=== PATIENT | female | born 1960 | race Caucasian/White ===

== ENCOUNTER 2017-06-21 15:34 | Inpatient (IN) | payer MEDICARE, OTHER ==
[~2017-06-21] VITALS: Ht 157.5 cm; Wt 76.4 kg
[~2017-06-21 15:34] MED LIST: AMLO5TAB2 PO; ASPI1TAB69 PO; ATOR80TA45 PO; CARV3.12 PO; CLOP75TA PO; DULO1CAP2 PO; FURO40TA PO; GABA300C5 PO; LISI-519 PO; METF500T PO; NYST10007 TOPICAL; PANT40TA3 PO; SYMB160A INH; TIOT12.9 INH
[2017-06-21 16:05] VITALS: BP 128/68; PULSE 71; RESP 20; TEMP 98.2; O2SAT 97
[2017-06-21] MEDS ORDERED: MORPHINE SULFATE 4 MG/ML INJ IV PUSH ONE (16:45)
[2017-06-21] MEDS ORDERED: SODIUM CHLORIDE 0.9% FLUSH 10 ML FLUSH IVF PRN (16:45)
[2017-06-21 17:00] VITALS: O2SAT 98
--- NOTE | 2017-06-21 17:01 | RADRPT ---
EXAM DATE/TIME: 06/21/2017 16:52 [facility] COMPARISON: CHEST PA & LAT, August 04, 2014, 8:41. INDICATIONS : Chest pain. MEDICAL HISTORY : Cardiovascular disease. Chronic obstructive pulmonary disease. SURGICAL HISTORY : CABG. Carotid stent. ENCOUNTER: Initial ACUITY: 1 day PAIN SCORE: 3/10 LOCATION: middle chest. FINDINGS: PA and lateral views of the chest demonstrate the lungs to be symmetrically aerated without evidence of mass, infiltrate or effusion. The cardiomediastinal contours are unremarkable. Osseous structure s are intact. CONCLUSION: Normal examination. Clips and wires suggest CABG. Brandon Ospina MD on June 21, 2017 at 16:56 Board Certified Radiologist. This report was verified electronically.
[2017-06-21 17:15] VITALS: BP 142/82; PULSE 73; RESP 18; O2SAT 93
--- NOTE | 2017-06-21 17:37 | RADRPT ---
EXAM DATE/TIME: 06/21/2017 17:15 [facility] COMPARISON: No previous studies available for comparison. INDICATIONS : Left arm pain. MEDICAL HISTORY : Cardiovascular disease. Myocardial infarction. Hypertension. Hypercholesterolemia. COPD. TIA. CHF. Renal Disease. SURGICAL HISTORY : Tubal ligation. AAA Repair. Mastectomy. ENCOUNTER: Initial ACUITY: 2 day PAIN SCORE: 2/10 LOCATION: Left arm. FINDINGS: There is spontaneous flow documented in the brachial, basilic, cephalic, axillary, and subclavian vei ns. The vessels are compressible and augmentation response is documented. No filling defects are se en. The flow is phasic with respiration. Direction of flow in the jugular vein is caudal. CONCLUSION: Normal examination. Brandon Ospina MD on June 21, 2017 at 17:35 Board Certified Radiologist. This report was verified electronically.
[2017-06-21 17:39] LABS: AUTOMATED NEUTROPHIL # 4.4 TH/MM3 (1.8-7.7); BASOPHIL # 0.1 TH/MM3 (0-0.2); BASOPHIL % 1.3 % (0.0-2.0); EOSINOPHIL # 0.3 TH/MM3 (0-0.4); HEMATOCRIT 39.4 % (35.0-46.0); HEMOGLOBIN 13.5 GM/DL (11.6-15.3); LYMPH % 25.9 % (9.0-44.0); LYMPHOCYTE # 1.9 TH/MM3 (1.0-4.8); MEAN CELL VOLUME 82.6 FL (80.0-100.0); MEAN CORPUSCULAR HEMOGLOBIN 28.2 PG (27.0-34.0); MEAN CORPUSCULAR HGB CONC 34.2 % (32.0-36.0); MEAN PLATELET VOLUME 9.1 FL (7.0-11.0); MONO % 6.9 % (0.0-8.0); MONOCYTE # 0.5 TH/MM3 (0-0.9); NEUT % 61.9 % (16.0-70.0); PLATELET COUNT 224 TH/MM3 (150-450); RED BLOOD COUNT 4.78 MIL/MM3 (4.00-5.30); RED CELL DISTRIBUTION WIDTH 16.3 % (11.6-17.2); WHITE BLOOD COUNT 7.2 TH/MM3 (4.0-11.0)
[2017-06-21 18:04] LABS: ALT (GPT) 17 U/L (10-53)
[2017-06-21 18:06] LABS: ALBUMIN 3.6 GM/DL (3.4-5.0); AST (GOT) 25 U/L (15-37); BICARBONATE 25.3 MEQ/L (21.0-32.0); BLOOD UREA NITROGEN 14 MG/DL (7-18); CALCIUM 8.8 MG/DL (8.5-10.1); CHLORIDE 104 MEQ/L (98-107); CREATININE 1.27 MG/DL (0.50-1.00); GLOMERULAR FILTRATION RATE 43 ML/MIN (>89); GLUCOSE,RANDOM 119 MG/DL (74-106); MAGNESIUM 2.2 MG/DL (1.5-2.5); SODIUM (NA) 138 MEQ/L (136-145)
--- NOTE | 2017-06-21 18:08 | PD ---
HPI Chief Complaint: Abdominal Pain Time Seen by Provider: 16:12 Travel History International Travel<30 days: No Contact w/Intl Traveler<30days: No Traveled to known affect area: No History of Present Illness HPI 57 YO F with PMH of CAD, PVD, CHF, TIA, HTN status post CABG, AAA repair on Plavix and aspirin daily presents to the ED for evaluation of 3/10 left-sided shoulder pain, radiating to the left chest and into the back. She denies palpitations, shortness of breath, nausea, vomiting, diaphoresis. Patient states this pain is similar to symptoms prior to previous heart attack. Also complains of 2/10 pain in the left antecubital space. Onset after she gave blood a few days ago. Patient states that she went to her primary care today to have these pains evaluated, was noted to have a potassium level of 5.0. PFSH Past Medical History Anemia: Yes Asthma: No Autoimmune Disease: No Blood Disorders: No Anxiety: No Depression: No Heart Rhythm Problems: No Cancer: No Cardiac Catheterization: Yes Cardiovascular Problems: Yes High Cholesterol: Yes Chest Pain: No Congestive Heart Failure: Yes COPD: Yes Cerebrovascular Accident: Yes (TIA'S) Diabetes: No Diminished Hearing: No Endocrine: No Genitourinary: Yes Hypertension: Yes Immune Disorder: No Musculoskeletal: No Neurologic: Yes (NEUROPATHY FROM ETOH ABUSE) Psychiatric: No Reproductive: No Respiratory: Yes Myocardial Infarction: Yes (2009) Radiation Therapy: No Sleep Apnea: No Thyroid Disease: No PNEUMOCCOCAL Vaccine (Year): 3 Tubal Ligation: Yes Past Surgical History Abdominal Surgery: Yes (AAA) AICD: No Cardiac Surgery: Yes (CABG X 4 2009, AAA, FEMP/POP BYPASS BILATERAL) Coronary Stent: Yes Ear Surgery: No Endocrine Surgery: No Eye Surgery: No Genitourinary Surgery: No Gynecologic Surgery: Yes (TUBAL LIGATION) Oral Surgery: No Pacemaker: No Thoracic Surgery: No Other Surgery: Yes (AAA/neuropathy, trip bypass) Social History Alcohol Use: No (QUIT 04/2014) Tobacco Use: No (QUIT 2007) Substance Use: Yes (MARIJUANA) Allergies-Medications (Allergen,Severity, Reaction): Coded Allergies: No Known Allergies (Verified Allergy, Unknown, 03/21/17) Reported Meds & Prescriptions Reported Meds & Active Scripts Active Carvedilol 3.125 Mg Tab 3.125 Mg PO BID Spiriva Respimat Inh (Tiotropium Inh) 2.5 Mcg/Act Aero 2 Puff INH DAILY 2.5 mcg = 1 inhalation Atorvastatin (Atorvastatin Calcium) 80 Mg Tab 80 Mg PO HS Lisinopril 5 Mg Tab 5 Mg PO DAILY Metformin (Metformin HCl) 500 Mg Tab 1,000 Mg PO BIDPC With meals Symbicort Inh (Budesonide/Formoterol Fumarate) 160-4.5 Mcg/Act Aero 2 Puff INH Q12HR Clopidogrel (Clopidogrel Bisulfate) 75 Mg Tab 75 Mg PO DAILY Nystop Topical (Nystatin Topical) 100,000 Unit/Gm Powd 1 Applic TOPICAL Q12HR Amlodipine (Amlodipine Besylate) 5 Mg Tab 5 Mg PO DAILY Furosemide 40 Mg Tab 40 Mg PO DAILY Pantoprazole (Pantoprazole Sodium) 40 Mg Tab 40 Mg PO DAILY Reported Gabapentin 300 Mg Cap 300 Mg PO BID Duloxetine DR (Duloxetine HCl) 30 Mg Capdr 30 Mg PO BID Review of Systems Except as stated in HPI: all other systems reviewed are Neg Physical Exam Narrative GENERAL: Well-nourished, well-developed white female no acute distress. SKIN: Focused skin assessment warm/dry. HEAD: Normocephalic. EYES: No scleral icterus. No injection or drainage. NECK: Supple, trachea midline. No JVD or lymphadenopathy. CARDIOVASCULAR: Regular rate and rhythm without murmurs, gallops, or rubs. CHEST: Nontender throughout without deformity or crepitus. No retractions or use of accessory muscles. RESPIRATORY: Breath sounds equal bilaterally. GASTROINTESTINAL: Abdomen soft, non-tender, nondistended. MUSCULOSKELETAL: No cyanosis, or edema. BACK: Nontender without obvious deformity. No CVA tenderness. Data Data Last Documented VS Vital Signs Date Time Temp Pulse Resp B/P (MAP) Pulse Ox O2 Delivery O2 Flow Rate FiO2 06/21/17 18:58 78 18 139/83 (101) 96 Room Air 06/21/17 16:05 98.2 Orders Orders Electrocardiogram (06/21/17 16:39) Ckmb (Isoenzyme) Profile (06/21/17 16:39) Complete Blood Count With Diff (06/21/17 16:39) Comprehensive Metabolic Panel (06/21/17 16:39) Magnesium (Mg) (06/21/17 16:39) Prothrombin Time / Inr (Pt) (06/21/17 16:39) Act Partial Throm Time (Ptt) (06/21/17 16:39) Troponin I (06/21/17 16:39) Ecg Monitoring (06/21/17 16:39) Bilateral Bp Monitoring (06/21/17 16:39) Iv Access Insert/Monitor (06/21/17 16:39) Oximetry (06/21/17 16:39) Sodium Chloride 0.9% Flush (Ns Flush) (06/21/17 16:45) Chest, Pa & Lat (06/21/17 16:39) Morphine Inj (Morphine Inj) (06/21/17 16:45) Us Arm Venous Doppler (06/21/17 16:39) B-Type Natriuretic Peptide (06/21/17 18:08) CKMB (06/21/17 16:12) CKMB% (06/21/17 16:12) Nitroglycerin 2% Oint (Nitroglycerin 2% (06/21/17 18:45) Aspirin Chew (Aspirin Chew) (06/21/17 18:45) Npo After Midnight W/ Po Meds (06/21/17 Dinner) Consult Cardiology (06/21/17 ) Nitroglycerin 2% Oint (Nitroglycerin 2% (06/21/17 19:00) Enoxaparin Inj (Lovenox Inj) (06/21/17 19:00) Troponin I (06/21/17 18:58) Creatine Kinase (Cpk) (06/21/17 18:58) Admit Order (Ed Use Only) (06/21/17 19:10) Labs Laboratory Tests Test 06/21/17 16:12 White Blood Count 7.2 TH/MM3 Red Blood Count 4.78 MIL/MM3 Hemoglobin 13.5 GM/DL Hematocrit 39.4 % Mean Corpuscular Volume 82.6 FL Mean Corpuscular Hemoglobin 28.2 PG Mean Corpuscular Hemoglobin Concent 34.2 % Red Cell Distribution Width 16.3 % Platelet Count 224 TH/MM3 Mean Platelet Volume 9.1 FL Neutrophils (%) (Auto) 61.9 % Lymphocytes (%) (Auto) 25.9 % Monocytes (%) (Auto) 6.9 % Eosinophils (%) (Auto) 4.0 % Basophils (%) (Auto) 1.3 % Neutrophils # (Auto) 4.4 TH/MM3 Lymphocytes # (Auto) 1.9 TH/MM3 Monocytes # (Auto) 0.5 TH/MM3 Eosinophils # (Auto) 0.3 TH/MM3 Basophils # (Auto) 0.1 TH/MM3 CBC Comment DIFF FINAL Differential Comment Prothrombin Time 10.0 SEC Prothromb Time International Ratio 1.0 RATIO Activated Partial Thromboplast Time 25.4 SEC Blood Urea Nitrogen 14 MG/DL Creatinine 1.27 MG/DL Random Glucose 119 MG/DL Total Protein 7.5 GM/DL Albumin 3.6 GM/DL Calcium Level 8.8 MG/DL Magnesium Level 2.2 MG/DL Alkaline Phosphatase 86 U/L Aspartate Amino Transf (AST/SGOT) 25 U/L Alanine Aminotransferase (ALT/SGPT) 17 U/L Total Bilirubin 0.5 MG/DL Sodium Level 138 MEQ/L Potassium Level 5.2 MEQ/L Chloride Level 104 MEQ/L Carbon Dioxide Level 25.3 MEQ/L Anion Gap 9 MEQ/L Estimat Glomerular Filtration Rate 43 ML/MIN Total Creatine Kinase 157 U/L Creatine Kinase MB 1.8 NG/ML Troponin I 0.07 NG/ML B-Type Natriuretic Peptide 249 PG/ML MDM Medical Decision Making Medical Screen Exam Complete: Yes Emergency Medical Condition: Yes Differential Diagnosis Muscular skeletal pain versus chest pain versus ACS versus metabolic derangement versus other Narrative Course 57 YO F with PMH of CAD, PVD, CHF, TIA, HTN status post CABG, AAA repair on Plavix and aspirin daily presents to the ED for evaluation of 3/10 left-sided shoulder pain, radiating to the left chest and into the back. She denies palpitations, shortness of breath, nausea, vomiting, diaphoresis. Patient states this pain is similar to symptoms prior to previous heart attack. Also complains of 2/10 pain in the left antecubital space. Onset after she gave blood a few days ago. Noted to have a potassium level of 5.0 at PCP office visit today. Followed by Dr. Zambrano, cardiology. Patient is afebrile, pulse 71, BP 120/68 on presentation. Physical exam is unremarkable. Patient was administered 4 mg morphine, 162 mg aspirin. EKG rate 96, sinus rhythm, frequent PVCs. OH interval 163, QRS 117, QTc 479 ms. Normal axis. No acute ST changes. Q waves in [address] Review[address] by Dr[address] Bowen. CXR: Normal exam. Clips and wires suggest CABG. Left upper extremity ultrasound: Normal exam per radiology read. Troponin 0.0 7. BNP 249. CBC is unremarkable. CMP potassium 5.2. BUN 14. Creatinine 1.27. 1 inch of Nitropaste was placed on the patient's chest. I spoke with Dr. Zambrano. He recommends an additional inch of Nitropaste, dose of subcutaneous Lovenox, admission to the hospital. Discussed the results of the workup and cardiology recommendations with the patient. She is agreeable to admission. I spoke with Dr. Berrios who agrees to accept the patient in the medicine service. Please see medicine and cardiology notes for disposition. Florinda Reeves Jun 21, 2017 18:08
[2017-06-21 18:11] LABS: ALKALINE PHOSPHATASE 86 U/L (45-117); TOTAL BILIRUBIN ADULT 0.5 MG/DL (0.2-1.0); TOTAL PROTEIN 7.5 GM/DL (6.4-8.2); TROPONIN I 0.07 NG/ML (0.02-0.05)
[2017-06-21] MEDS ORDERED: ASPIRIN 81 MG CHEW TAB CHEW ONE (18:45)
[2017-06-21] MEDS ORDERED: NITROGLYCERIN 2% OINT 1 GM PACKET TOP ONE ×2 (18:45→19:00)
[2017-06-21 18:58] VITALS: BP 139/83; PULSE 78; RESP 18; O2SAT 96
[2017-06-21] MEDS ORDERED: ENOXAPARIN SODIUM 80 MG/0.8 ML SYRINGE SQ ONE (19:00)
[2017-06-21] MEDS ORDERED: ACETAMINOPHEN 325 MG TAB PO PRN (19:45)
[2017-06-21] MEDS ORDERED: BISACODYL 10 MG SUPP RECTAL PRN (19:45)
[2017-06-21] MEDS ORDERED: SODIUM CHLORIDE 0.9% FLUSH 10 ML FLUSH IV FLUSH PRN (19:45)
[2017-06-21] MEDS ORDERED: LACTULOSE SYRUP 20 GM/30 ML CUP PO PRN (19:45)
[2017-06-21] MEDS ORDERED: SENNOSIDES 8.6 MG TAB PO PRN (19:45)
[2017-06-21] MEDS ORDERED: MAGNESIUM HYDROXIDE SUSP 30 ML CUP PO PRN (19:45)
[2017-06-21] MEDS ORDERED: NALOXONE HCL 0.4 MG/ML AMP IV PUSH PRN (19:45)
[2017-06-21 20:12] LABS: TROPONIN I 0.06 NG/ML (0.02-0.05)
[2017-06-21 20:13] VITALS: BP 149/69; PULSE 74; RESP 18; TEMP 96.2; O2SAT 96
[2017-06-21] MEDS ORDERED: GLUCAGON 1 MG/ML VIAL OTHER PRN (21:00)
[2017-06-21] MEDS ORDERED: DEXTROSE 50% IN WATER 50 ML VIAL(D50) IV PUSH PRN (21:00)
[2017-06-21] MEDS: INSULIN ASPART SUPPLEMENTAL SCALE SQ SCH (21:00)
--- NOTE | 2017-06-21 21:08 | HHI.HP ---
HPI Service [facility] Primary Care Physician ENDER Andres Admission Diagnosis Elevated troponin, hyperkalemia Diagnoses: Travel History International Travel<30 Days: No Contact w/Intl Traveler <30 Da: No Traveled to Known Affected Are: No History of Present Illness 57-year-old female with past medical history significant for COPD, CHF (EF of 25 -30% on 09/30/14), CKD, diabetes mellitus, hypertension and hyperlipidemia presents to the emergency department for evaluation of chest pain/pressure. The patient reports her chest pain started yesterday and radiates to her neck and down her left arm. She reports that her PCP sent her into the emergency department for further evaluation of this chest pain and hyperkalemia on outpatient labs. Her comptroller is Dr. Zambrano. She denies any shortness of breath worse than baseline. No diaphoretic episodes. No fever/chills. No nausea/vomiting/diarrhea/abdominal pain. No weakness or fatigue. No lateralizing signs/symptoms. Review of Systems Except as stated in HPI: all other systems reviewed are Neg Past Family Social History Past Medical History COPD CHF CKD Diabetes mellitus Hypertension Hyperlipidemia Past Surgical History CABG 3 AAA repair 2 Left CCA BTL Reported Medications Reported Meds & Active Scripts Active Carvedilol 3.125 Mg Tab 3.125 Mg PO BID Spiriva Respimat Inh (Tiotropium Inh) 2.5 Mcg/Act Aero 2 Puff INH DAILY 2.5 mcg = 1 inhalation Atorvastatin (Atorvastatin Calcium) 80 Mg Tab 80 Mg PO HS Lisinopril 5 Mg Tab 5 Mg PO DAILY Metformin (Metformin HCl) 500 Mg Tab 1,000 Mg PO BIDPC With meals Symbicort Inh (Budesonide/Formoterol Fumarate) 160-4.5 Mcg/Act Aero 2 Puff INH Q12HR Clopidogrel (Clopidogrel Bisulfate) 75 Mg Tab 75 Mg PO DAILY Nystop Topical (Nystatin Topical) 100,000 Unit/Gm Powd 1 Applic TOPICAL Q12HR Amlodipine (Amlodipine Besylate) 5 Mg Tab 5 Mg PO DAILY Furosemide 40 Mg Tab 40 Mg PO DAILY Pantoprazole (Pantoprazole Sodium) 40 Mg Tab 40 Mg PO DAILY Reported Gabapentin 300 Mg Cap 300 Mg PO BID Duloxetine DR (Duloxetine HCl) 30 Mg Capdr 30 Mg PO BID Allergies: Coded Allergies: No Known Allergies (Verified Allergy, Unknown, 03/21/17) Family History Father with CAD Social History Smokes approximately 2 packs per day. Occasional alcohol. Positive marijuana. Denies all other illicit drugs. Physical Exam Vital Signs Vital Signs Date Time Temp Pulse Resp B/P (MAP) Pulse Ox O2 Delivery O2 Flow Rate FiO2 06/21/17 20:06 06/21/17 18:58 78 18 139/83 (101) 96 Room Air 06/21/17 17:15 73 18 142/82 (102) 93 Room Air 06/21/17 17:00 98 Room Air 06/21/17 17:00 20 06/21/17 16:05 98.2 71 20 128/68 (88) 97 Physical Exam GENERAL: female sitting up in bed SKIN: No rashes, ecchymoses or lesions. Cool and dry. HEAD: Atraumatic. Normocephalic. No temporal or scalp tenderness. EYES: Pupils equal round and reactive. Extraocular motions intact. No scleral icterus. No injection or drainage. ENT: Nose without bleeding, purulent drainage or septal hematoma. Throat without erythema, tonsillar hypertrophy or exudate. Uvula midline. Airway patent. NECK: Trachea midline. No JVD or lymphadenopathy. Supple, nontender, no meningeal signs. CARDIOVASCULAR: Regular rate and rhythm without murmurs, gallops, or rubs. RESPIRATORY: Clear to auscultation. Breath sounds equal bilaterally. No wheezes , rales, or rhonchi. GASTROINTESTINAL: Abdomen soft, non-tender, nondistended. No hepato-splenomegaly , or palpable masses. No guarding. MUSCULOSKELETAL: Extremities without clubbing, cyanosis, or edema. No joint tenderness, effusion, or edema noted. No calf tenderness. NEUROLOGICAL: Awake and alert. Cranial nerves II through XII intact. Motor and sensory grossly within normal limits. Normal speech. Laboratory Laboratory Tests Test 06/21/17 16:12 06/21/17 19:25 White Blood Count 7.2 Red Blood Count 4.78 Hemoglobin 13.5 Hematocrit 39.4 Mean Corpuscular Volume 82.6 Mean Corpuscular Hemoglobin 28.2 Mean Corpuscular Hemoglobin Concent 34.2 Red Cell Distribution Width 16.3 Platelet Count 224 Mean Platelet Volume 9.1 Neutrophils (%) (Auto) 61.9 Lymphocytes (%) (Auto) 25.9 Monocytes (%) (Auto) 6.9 Eosinophils (%) (Auto) 4.0 Basophils (%) (Auto) 1.3 Neutrophils # (Auto) 4.4 Lymphocytes # (Auto) 1.9 Monocytes # (Auto) 0.5 Eosinophils # (Auto) 0.3 Basophils # (Auto) 0.1 CBC Comment DIFF FINAL Differential Comment Prothrombin Time 10.0 Prothromb Time International Ratio 1.0 Activated Partial Thromboplast Time 25.4 Blood Urea Nitrogen 14 Creatinine 1.27 Random Glucose 119 Total Protein 7.5 Albumin 3.6 Calcium Level 8.8 Magnesium Level 2.2 Alkaline Phosphatase 86 Aspartate Amino Transf (AST/SGOT) 25 Alanine Aminotransferase (ALT/SGPT) 17 Total Bilirubin 0.5 Sodium Level 138 Potassium Level 5.2 Chloride Level 104 Carbon Dioxide Level 25.3 Anion Gap 9 Estimat Glomerular Filtration Rate 43 Total Creatine Kinase 157 130 Creatine Kinase MB 1.8 Troponin I 0.07 0.06 Result Diagram: 06/21/17 1612 06/21/17 1612 Caprini VTE Risk Assessment Caprini VTE Risk Assessment: No/Low Risk (score <= 1) Caprini Risk Assessment Model Point Value = 1 Point Value = 2 Point Value = 3 Point Value = 5 Age 41-60 Minor surgery BMI > 25 kg/m2 Swollen legs Varicose veins or History of unexplained or recurrent spontaneous Oral contraceptives or hormone replacement Sepsis (< 1 month) Serious lung disease, including pneumonia (< 1 month) Abnormal pulmonary function Acute myocardial infarction Congestive heart failure (< 1 month) History of inflammatory bowel disease Medical patient at bed rest Age 61-74 Arthroscopic surgery Major open surgery (> 45 min) Laparoscopic surgery (> 45 min) Malignancy Confined to bed (> 72 hours) Immobilizing plaster cast Central venous access Age >= 75 History of VTE Family history of VTE Factor V Leiden Prothrombin [id number] Lupus anticoagulant Anticardiolipin antibodies Elevated serum homocysteine Heparin-induced thrombocytopenia Other congenital or acquired thrombophilia Stroke (< 1 month) Elective arthroplasty Hip, pelvis, or leg fracture Acute spinal cord injury (< 1 month) Prophylaxis Regimen Total Risk Factor Score Risk Level Prophylaxis Regimen 0-1 Low Early ambulation 2 Moderate Order ONE of the following: *Sequential Compression Device (SCD) *Heparin 5000 units SQ BID 3-4 Higher Order ONE of the following medications: *Heparin 5000 units SQ TID *Enoxaparin/Lovenox 40 mg SQ daily (WT < 150 kg, CrCl > 30 mL/min) *Enoxaparin/Lovenox 30 mg SQ daily (WT < 150 kg, CrCl > 10-29 mL/min) *Enoxaparin/Lovenox 30 mg SQ BID (WT < 150 kg, CrCl > 30 mL/min) AND/OR *Sequential Compression Device (SCD) 5 or more Highest Order ONE of the following medications: *Heparin 5000 units SQ TID (Preferred with Epidurals) *Enoxaparin/Lovenox 40 mg SQ daily (WT < 150 kg, CrCl > 30 mL/min) *Enoxaparin/Lovenox 30 mg SQ daily (WT < 150 kg, CrCl > 10-29 mL/min) *Enoxaparin/Lovenox 30 mg SQ BID (WT < 150 kg, CrCl > 30 mL/min) AND *Sequential Compression Device (SCD) Assessment and Plan Assessment and Plan Assessment/plan: 1. NSTEMI/CAD EKG shows normal sinus rhythm without ST segment elevation/depression, personally reviewed Initial troponin 0 0.07 Status post Lovenox Cardiology consulted, appreciate recommendations Aspirin N.p.o. Nitro 2. Diabetes mellitus Holding home metformin Sliding-scale insulin Monitor blood glucose 3. CHF Continue home Lasix, carvedilol 4. Hypertension/hyperlipidemia Continue home medications 5. Chronic kidney disease Creatinine 1.27, baseline Monitor renal function 6. COPD Continue Spiriva/Symbicort DuoNeb's Supplemental oxygen as needed FEN N.p.o. Electrolytes: Monitor and replete as needed, potassium 5.2 with slight hemolysis noted. Monitor Lovenox Physician Certification 2 Midnight Certification Type: Admission for Inpatient Services Order for Inpatient Services The services are ordered in accordance with Medicare regulations or non- Medicare payer requirements, as applicable. In the case of services not specified as inpatient-only, they are appropriately provided as inpatient services in accordance with the 2-midnight benchmark. Estimated LOS (days): 2 2 days is the estimated time the patient will need to remain in the hospital, assuming treatment plan goals are met and no additional complications. Post-Hospital Plan: Not yet determined Mei Berrios MD Jun 21, 2017 21:08
[2017-06-21] MEDS ORDERED: RESP: ALBUTEROL 2.5 MG/IPRATROPIUM 0.5 MG NEB (PRN) NEB (21:15)
[2017-06-21] MEDS: SODIUM CHLORIDE 0.9% FLUSH 10 ML FLUSH IV FLUSH SCH (22:20)
[2017-06-21] MEDS ORDERED: ACETAMINOPHEN/HYDROcodone 325 MG/5 MG TAB PO ONE (22:30)
[2017-06-22] VITALS (7 sets, daily range): BP systolic 110–146; BP diastolic 54–95; PULSE 59–117; RESP 16–18; TEMP 97.3–98.2; O2SAT 92–96
[2017-06-22] MEDS: NITROGLYCERIN 2% OINT 1 GM PACKET TOP SCH ×4 (01:35→17:31)
[2017-06-22 03:30] LABS: TROPONIN I 0.07 NG/ML (0.02-0.05)
[2017-06-22] MEDS: ONDANSETRON HCL 4 MG/2 ML VIAL IVP PRN (06:50)
[2017-06-22 07:12] LABS: AUTOMATED NEUTROPHIL # 3.1 TH/MM3 (1.8-7.7); BASOPHIL # 0.1 TH/MM3 (0-0.2); BASOPHIL % 1.2 % (0.0-2.0); EOSINOPHIL # 0.2 TH/MM3 (0-0.4); EOSINOPHIL % 4.4 % (0.0-4.0); HEMOGLOBIN 13.4 GM/DL (11.6-15.3); LYMPH % 29.2 % (9.0-44.0); LYMPHOCYTE # 1.6 TH/MM3 (1.0-4.8); MEAN CELL VOLUME 82.1 FL (80.0-100.0); MEAN CORPUSCULAR HEMOGLOBIN 27.6 PG (27.0-34.0); MEAN CORPUSCULAR HGB CONC 33.6 % (32.0-36.0); MEAN PLATELET VOLUME 8.6 FL (7.0-11.0); MONO % 8.9 % (0.0-8.0); MONOCYTE # 0.5 TH/MM3 (0-0.9); NEUT % 56.3 % (16.0-70.0); PLATELET COUNT 200 TH/MM3 (150-450); RED BLOOD COUNT 4.87 MIL/MM3 (4.00-5.30); RED CELL DISTRIBUTION WIDTH 16.1 % (11.6-17.2); WHITE BLOOD COUNT 5.6 TH/MM3 (4.0-11.0)
[2017-06-22] MEDS: INSULIN ASPART SUPPLEMENTAL SCALE SQ SCH ×4 (07:57→21:00)
[2017-06-22] MEDS: FUROSEMIDE 40 MG TAB PO SCH (07:58)
[2017-06-22] MEDS: amLODIPine BESYLATE 5 MG TAB PO SCH (07:58)
[2017-06-22] MEDS: GABAPENTIN 300 MG CAP PO SCH ×2 (07:59→22:00)
[2017-06-22] MEDS: PANTOPRAZOLE SOD 40 MG DELAYED RELEASE TAB PO SCH (07:59)
[2017-06-22] MEDS: DULoxetine HCl DR 30 MG CAP PO SCH ×2 (07:59→22:01)
[2017-06-22] MEDS: SODIUM CHLORIDE 0.9% FLUSH 10 ML FLUSH IV FLUSH SCH ×2 (08:00→22:03)
[2017-06-22] MEDS: BUDESONIDE-FORMOTEROL 160/4.5 MCG INHALER INH SCH ×2 (08:00→22:03)
[2017-06-22 08:03] LABS: BICARBONATE 26.6 MEQ/L (21.0-32.0); CREATININE 0.96 MG/DL (0.50-1.00)
[2017-06-22] MEDS ORDERED: TIOTROPIUM INH SCH (09:00)
[2017-06-22] MEDS ORDERED: LISINOPRIL 5 MG TAB PO SCH (09:00)
[2017-06-22] MEDS ORDERED: CARVEDILOL 3.125 MG TAB PO SCH (09:00)
--- NOTE | 2017-06-22 11:00 | MB ---
cc: Blair Zambrano MD DATE: 06/22/2017 HISTORY OF PRESENT ILLNESS: Suzanna is a very pleasant 57-year-old lady who has established care with me, who has a history of coronary artery disease, status post CABG and PCI, peripheral vascular disease, status post AAA repair, CHF, cardiomyopathy, history of TIA, hypertension, tobacco use, who presented to the ER yesterday with 3/10 left-sided shoulder pain. She is still having it intermittently this morning. It radiates to the left chest and to the back. Otherwise, denies any fevers, chills, cough, GI or bleeding, PND, orthopnea, syncope, or dizziness. She states the pain is similar to her previous angina. This occurred after she gave blood a few days ago. PAST MEDICAL HISTORY: Per history of present illness. She has a history of anemia, hyperlipidemia, hypertension, alcoholic-induced neuropathy, history of myocardial infarction, and tubal ligation. SOCIAL HISTORY: She quit smoking in 2007. She does smoke marijuana. Denies alcohol use. ALLERGIES: NONE. MEDICATIONS PRIOR TO ADMISSION: 1. Carvedilol 3.25 b.i.d. 2. Spiriva. 3. Atorvastatin 80 mg at bedtime. 4. Lisinopril 5 mg daily. 5. Metformin 500/1000 b.i.d. 6. Symbicort. 7. Clopidogrel 75 mg daily. 8. Amlodipine 5 mg daily. 9. Lasix 40 mg daily. 10. Pantoprazole 40 mg daily. 11. Gabapentin. 12. Duloxetine. MEDICATIONS IN THE HOSPITAL: 1. Atorvastatin 80 at bedtime. 2. Amlodipine 5 mg daily. 3. Symbicort. 4. Carvedilol 3.125 b.i.d. 5. Cymbalta 30 mg b.i.d. 6. Lasix 40 mg daily. 7. Gabapentin 300 b.i.d. 8. Lisinopril 5 mg daily. 9. Pantoprazole 40 mg daily. 10. 1 inch nitro paste q.6 hours. 11. Albuterol p.r.n. 12. She was given 162 mg of chewable aspirin in the ER yesterday and also 75 mg of subcutaneous Lovenox at 1900 hours on 06/21/2017. PHYSICAL EXAMINATION: VITAL SIGNS: Blood pressure 124/60, pulse 75, temperature 97.9, respiratory rate 18, saturations 94% on room air. GENERAL: She is alert and oriented x 3, in no acute distress. NECK: Supple. No JVD. No bruit. CARDIOVASCULAR: S1, S2. No murmurs, rubs or gallops. LUNGS: Clear to auscultation bilaterally. ABDOMEN: Soft, nontender, and nondistended with positive bowel sounds. EXTREMITIES: No lower extremity edema. DIAGNOSTIC STUDIES: Chest x-ray shows normal examination. She had upper extremity ultrasound, which was within normal limits. EKG: Normal sinus rhythm at 96 beats per minute, inferior OH age indeterminate, poor R-wave progression, nonspecific ST-T wave changes, left ventricular hypertrophy. LABORATORY DATA: White count is 5.6, hemoglobin 13.4, hematocrit 40.0, platelet count 200. INR 1.0. Sodium 138, potassium 5.2, chloride 104, bicarbonate 25.3, creatinine is 1.27. AST 25, ALT 17. Troponin 0.07, 0.06 and 0.07. BNP is 249. DIAGNOSES: 1. [id number] myocardial infarction. 2. Cardiomyopathy. 3. Decompensated congestive heart failure. 4. Hyperkalemia. 5. Acute renal failure. 6. Diabetes mellitus. 7. Peripheral vascular disease. DISCUSSION: The patient is a very high risk given her elevated troponin and multiple comorbidities detailed above. She has been appropriately medicated with Coreg, lisinopril, nitro paste, aspirin, Lovenox and Lipitor. She is still having chest discomfort. I do think right heart catheterization, left heart catheterization are medically necessary. We will proceed with this today. Further recommendations pending the details of her coronary anatomy, right heart catheterization findings. MD LUCILLE Olivier/MENDOZA , 10:33 AM , 10:58 AM
--- NOTE | 2017-06-22 13:08 | HHI.PR ---
Subjective Remarks went for cath- off the floor seen 330 pm at DOC unit- post cath no complains of chest pains d/w her results patient comfortable Objective Vitals Vital Signs Date Time Temp Pulse Resp B/P (MAP) Pulse Ox O2 Delivery O2 Flow Rate FiO2 06/22/17 12:00 97.3 64 18 140/65 (90) 94 06/22/17 08:00 75 06/22/17 08:00 97.9 71 18 146/78 (100) 92 06/22/17 04:00 97.9 85 18 124/60 (81) 94 06/22/17 04:00 75 06/22/17 00:00 97.3 69 17 132/59 (83) 92 06/22/17 00:00 59 06/21/17 20:13 96.2 74 18 149/69 (95) 96 06/21/17 20:06 06/21/17 18:58 78 18 139/83 (101) 96 Room Air 06/21/17 17:15 73 18 142/82 (102) 93 Room Air 06/21/17 17:00 98 Room Air 06/21/17 17:00 20 06/21/17 16:05 98.2 71 20 128/68 (88) 97 I/O 06/21/17 06/21/17 06/21/17 06/22/17 06/22/17 06/22/17 07:00 15:00 23:00 07:00 15:00 23:00 Intake Total 120 ml Balance 120 ml Intake Oral 120 ml # Voids 0 # Bowel Movements 0 Result Diagram: 06/22/17 0655 06/22/17 0655 Imaging Last Impressions Upper Extremity Ultrasound 06/21/171638 Signed Impressions: Service Date/Time: May 17:15 - CONCLUSION: Normal examination. Brandon Ospina MD Chest X-Ray 06/21/171638 Signed Impressions: Service Date/Time: May 16:52 - CONCLUSION: Normal examination. Clips and wires suggest CABG. Brandon Ospina MD Objective Remarks awkae anlert no distress lungs- clear regular rhythm abdomen- globularly soft, nontender right groin- no hematoma good peripheral pulses Procedures 06/22- cardiac cath A/P Assessment and Plan 57 years old female 1. NSTEMI/CAD- known CAD s/p cath- non obstructive EKG shows normal sinus rhythm without ST segment elevation/depression cleared for DC by cardiology Cardiology ff- cath continue ASA/Plavix. Coreg and Lisinoprill- doses increased 2. Diabetes mellitus Holding home metformin- restart 48 hours post cath - d/w patient Sliding-scale insulin Monitor blood glucose 3. CHF-clinically not in failure Continue home Lasix, carvedilol- dose increased 4. Hypertension/hyperlipidemia Continue home medications 5. Chronic kidney disease- stable 6. COPD in remission Continue Spiriva/Symbicort DuoNeb's Supplemental oxygen as needed HOme today/tonite diet- heart healthy. ADA Activity as tolerated- no heavy/strenuous activity, routine post cath care Continue med-s scripts written ff up with PCP- Dr. Flores FF Up with cardiology Ping Rojas MD Jun 22, 2017 13:08
[2017-06-22] MEDS ORDERED: HEPARIN SODIUM - IV 10,000 UNITS/10 ML VIAL ONE (13:10)
[2017-06-22] MEDS ORDERED: HEPARIN-NS/PF FLUSH BAG 1,000 ML IV FLUSH ONE (13:10)
[2017-06-22] MEDS ORDERED: MIDAZOLAM HCL 2 MG/2 ML VIAL ONE (13:10)
--- NOTE | 2017-06-22 13:17 | EKG ---
Date Performed: 06/22/2017 Time Performed: 01:42:44 PTAGE: 57 years EKG: Sinus arrhythmia Inferior infarct - age undetermined Possible left ventricular hypertrophy Lateral T wave changes are probably due to ventricular hypertrophy Cannot rule out old anterior infar ction Since previous tracing, no significant change noted Abnormal ECG PREVIOUS TRACING : 06/21/2017 16.20 DOCTOR: Bassem Bird Interpretating Date/Time 06/22/2017 13:16:02
[2017-06-22] MEDS ORDERED: MIDAZOLAM HCL 2 MG/2 ML VIAL IV PUSH ONE (13:32)
--- NOTE | 2017-06-22 13:48 | EKG ---
Date Performed: 06/21/2017 Time Performed: 16:20:18 PTAGE: 57 years EKG: Sinus rhythm WITH FREQUENT SUPRAVENTRICULAR PREMATURE COMPLEXES POSSIBLE LEFT ATRIAL ENLARGEMENT POSSIBLE LEFT VE NTRICULAR HYPERTROPHY POSSIBLE ANTERIOR MYOCARDIAL INFARCTION INFERIOR MYOCARDIAL INFARCTION ABNORMAL ECG PREVIOUS TRACING : 11/23/2014 12.31 Since the previous tracing, no significant change noted DOCTOR: Bassem Bird Interpretating Date/Time 06/22/2017 13:45:02
--- NOTE | 2017-06-22 14:03 | CATHPROC ---
[facility] HIS Report Study Information Study Number Admission Scheduled Start Study Start [id number] Jun 21 2017 7:11PM 06/22/2017 Jun 22 2017 12:47PM [place] Service Cardiac Catheterization Admit Source Facility Department Emergency department [facility] - Manager Industrial Physician and Clinical Staff Initial Blair Reyes Coroner TechnicianMei Lomeli,LEORA Coroner Technicianwalter Burks RN, Sabas Recorder Waylon Pittman,RT(R) Recorder Ena Hurley ,RT(R) Scrub Nikolay Bailey RCIS(BS) Procedures Performed Procedure Location (Site) Vessel Name Coronary Angiograms LCA Left Coronary Coronary Angiograms RCA Right Coronary Coronary Angiograms OROSCO Graft Left Coronary Coronary Angiograms SVG-PDA Right Coronary L Heart Cath LV Gram-hand inj. LV LV Ventricle Equipment Time Supervisor Briar Shop Description Size Mfg Part Number Used/Scraped CATHETER, FR5 SWAN LA 13:13 Encapson FR 5 [id number] *[id number] Used MONITOR TRANSDUCER, TRUWAVE [id number] 13:13 COUCH HEAD * Used W/STOCKCOCK *[id number] [id number] *[id number] [id number] *[id number] [id number] *[id number] [id number] *[id number] 13:13 MEDLINE INDUSTRIES PACK, CCL CUSTOM * Used *[id number] 13:13 MEDLINE PACER PEN, SKIN DUAL W/ RULER * Used *[id number] 13:13 [employer] MEDICAL SHEATH, FR5.5 PRELUDE 11CM FR 5.5 Used [id number]# [id number] 13:13 [employer] MEDICAL WIRE, 3MMJ .035 180CM 180CM Used *[id number] 13:13 NAMIC MANIFOLD, 4 PORT * Used *[id number] 13:13 NYCOMED OMNIPAQUE, 350 MG, 150ML 150ML [id number] Used [id number] 13:13 Screen Tonic MEDICAL BLANKET,WARM AIR CCL * Used *[id number] 13:13 TERUMO MEDICAL SHEATH, FR4 TERUMO (10CM) FR 4 Used *[id number] History: Current Medications Medication Dosage/Unit Route Frequency Last Date/Time Taken CARVEDILOL Statins (any) LISINOPRIL Glucophage NTG Patch History: Allergies Allergy Reaction No Known Allergies History: Risk Factors Family History of Hypertension Dyslipidemia Previous PR Previous Heart Failure Premature CAD Yes Yes Yes No Yes Prior Valve Prior PCI Prior PCIDate Prior CABG Prior CABGDate Surgery No Yes 05/27/2012 Yes 05/28/2007 Cerebrovascular Peripheral Artery Chronic Lung On Dialysis Diabetes Diabetes Therapy Disease Disease Disease No Yes Yes Yes Yes Oral History: Symptoms/Diagnosis Selection Items Chest pain History: CV Disease Selection Items Cardiomyopathy Known CAD History: Stress Tests Stress or Imaging Studies Performed No History: Other Disease Selection Items CAD CHF COPD HTN History: Other Current Smoker Method Packs a Day Years Used Pack Years Yes Cigarettes 2 30 60 Labs Hgb (g/dl) Hct (%) RBC (MIL/MM3) WBC (l/cumm) Platelets (thousands) 11.60-17.00 35.00-51.00 4.00-5.90 4.00-11.00 150.00-450.00 13.4 40 4.8 5.6 200 Glucose (mg/dl) BUN (mg/dl) Creatinine (mg/dl) BUN:Creatinine (1:x) 74.00-106.00 7.00-18.00 0.50-1.30 10.00-20.00 108 12 0.9 13.3 Na (meq/l) K (meq/l) Cl (meq/l) CO2 (mmol/L) Ca (mg/dl) 136.00-145.00 3.50-5.10 98.00-107.00 21.00-32.00 8.50-10.10 140 3.6 104 26.6 9 PT (sec) PTT (sec) INR (PTT:PT) 9.80-11.60 24.30-30.10 0.90-1.10 10 25.4 1 Troponin I (ng/ml) CPK (u/l) CPK-MB (ng/ML) 0.02-0.05 26.00-308.00 0.50-3.60 0.07 91 1.8 Medication Medication Total Dose (Bolus/Oral) Medication Total Dosage/Unit 1% XYLOCAINE 20 mL FENTANYL 12.5 mcg VERSED 1 mg Medications (Bolus/Oral) Medication Time Given Dosage/Unit Administered By Reason VERSED 06/22/2017 1:32:36 PM 1 mg Mei Moody 1 mg VERSED given in lab by Mei Moody RN in Right Wrist via Peripheral IV. Ordered by Blair Zambrano. FENTANYL 06/22/2017 1:33:54 PM 12.5 mcg Mei Moody 12.5 mcg FENTANYL given in lab by Mei Moody RN via Peripheral IV. Ordered by Blair Zambrano. 1% XYLOCAINE 06/22/2017 1:34:06 PM 20 mL Blair Zambrano 20 mL 1% XYLOCAINE given in lab by Blair Zambrano in Right Groin via Subcutaneous. Ordered by Blair Shen. Medication (Drip) Medication Time Given Dosage/Unit Concentration/Unit Diluent (ml) Solution IV Solutions 06/22/2017 1:03:55 PM 0 mL (IV) 500 NaCl .9 IV Solutions given in lab by Sabas Burks RN in Right Hand via Peripheral IV. Pump/Drip Flow = 20 ml/ hr using NaCl .9. Initial Case Assessment Cardiovascular HR Rhythm NIBP Chest Pain 20 Sinus 154/76 0 Edema Present Skin color Skin None Normal Warm Dry Circulatory - Right Pulses Dorsalis Pedis Femoral d 2 Scale (0,1,2,3,4,d) Circulatory - Left Pulses Dorsalis Pedis Femoral d 2 Scale (0,1,2,3,4,d) Neurological State Oriented to time-place- Alert Moves all extremities person Respiration - General Respiration Rate SpO2 (%) O2 (lpm) (B/min) 15 95 0 Final Case Assessment Cardiovascular HR Rhythm NIBP Chest Pain 20 Sinus 154/76 0 Edema Present Skin color Skin None Normal Warm Dry Circulatory - Right Pulses Dorsalis Pedis Femoral d 2 Scale (0,1,2,3,4,d) Circulatory - Left Pulses Dorsalis Pedis Femoral d 2 Scale (0,1,2,3,4,d) Neurological State Oriented to time-place- Alert Moves all extremities person Respiration - General Respiration Rate SpO2 (%) O2 (lpm) (B/min) 15 95 0 Chronological Log Time Study Chronological Log 13:03:09 Patient arrived via Bed. 13:03:11 Patient Name, D.O.B, / Armband Verified By R.N. 13:03:12 Consent signed by the physician and the patient and verified by the Manager Industrial staff. 13:03:12 Pre-op and post- op instructions given; patient acknowledges understanding of instructions. 13:03:13 Verbal Stimulation=2 Physical Stimulation=2 Airway=2 Respiration=2 TOTAL=8. (0=absent, 1=li mited, 2=present) 13:03:26 Presedation assessment performed by Manager Industrial RN. 13:03:32 Patient has been NPO for Less than 6Hrs. 13:03:34 Skin Breakdown- bilateral groin rash. 13:03:35 Patient Warmer Placed on the Table. 13:03:38 Vashti Prominences Protected 13:03:42 A # 20 IV was noted in the Hand (right). Grade = 0 13:03:55 IV Solutions given in lab by Sabas Burks RN in Right Hand via Peripheral IV. Pump/Drip Ger w = 20 ml/hr using NaCl .9. 13:03:57 History and physical on the chart or being dictated. Vitals capture started with the following parameters, Patient=Adult, Interval=5 min, Initial Pr omthru=496 mmHg, 13:07:00 Deflation Rate=5 mmHg, Cuff placed on Left Arm Assessment: Initial Case, HR=20 BPM, Rhythm=Sinus, HBPV=916/76 mmhg, Chest Pain=0, Edema=None, Color=Normal, Skin = Warm, Dry Right Pulses: Ross Ped=d, Femoral=2 13:07:50 Left Pulses: Ross Ped=d, Femoral=2 Neurological: State=Alert, Ox3, WELLS Respiration: Resp=15 B/min, SpO2=95 %, O2=0 lpm 13:08:47 KOWE=702/76 mmhg, SpO2=93.0 %, Resp=11 B/min, Pain=0, Estefanía=10, Patrick=2 13:12:44 HR=69 bpm, FLUB=798/75 mmhg, SpO2=89.0 %, Resp=21 B/min, Pain=0, Estefanía=10, Patrick=2 13:17:41 HR=83 bpm, NAKI=131/79 mmhg, SpO2=92.0 %, Resp=22 B/min, Pain=0, Estefanía=10, Patrick=2 13:22:39 Bilateral groins prepped with 2% chlorhexidine, and draped after a 3 minute waiting time. 13:22:44 HR=70 bpm, ADHN=627/82 mmhg, SpO2=89.0 %, Resp=19 B/min, Pain=0, Estefanía=10, Patrick=2 13:22:52 MD paged 13:23:01 Reference ECG taken 13:23:49 MD responded 13:25:39 Pressure channel 1 zeroed. 13:27:18 MD arrived. 13:27:43 HR=70 bpm, VOKK=432/82 mmhg, SpO2=88.0 %, Resp=19 B/min, Pain=0, Estefanía=10, Patrick=2 Time Out. Correct patient, correct procedure, correct physician, power injector not loaded with contrast with surgical 13:28:49 team present. Time Out Concurred by MD and individual staff in procedure. 13:32:31 Case Start 13:32:36 1 mg VERSED given in lab by Mei Moody, RN in Right Wrist via Peripheral IV. Ordered b Blair Canchola. 13:32:42 HR=69 bpm, WEFI=765/84 mmhg, SpO2=89.0 %, Resp=20 B/min, Pain=0, Estefanía=10, Patrick=2 13:33:54 12.5 mcg FENTANYL given in lab by Mei Moody, RN via Peripheral IV. Ordered by Blair Westfall. 20 mL 1% XYLOCAINE given in lab by Blair Zambrano in Right Groin via Subcutaneous. Ordered by [place], 13:34:06 Blair. 13:34:14 Access site was Right Femoral Artery. 13:35:40 A SHEATH, FR4 TERUMO (10CM) FR 4 was advanced into the Fem Art (right) using the Percutaneo us technique. A JR 4.0 INFINITI CATHETER FR 4 was advanced over a wire. OMNIPAQUE, 350 MG, 150ML 150ML was us ed for 13:35:53 injections. 13:36:12 Saturation: Site=Ao (Aorta) , O2=92 %, Hgb=13.4 gm/dl, Condition=Condition 1. Used in calcu lation. Recorded Pressure: LV, HR=76, Condition=Condition 1 13:36:43 (Left Ventricle) LV 155/11/17 Recorded Pressure: LV, Ao, HR=73, Condition=Condition 1 13:37:07 (Left Ventricle) LV 144/11/15, (Aorta) Ao ?/?/? 13:37:30 The LV was manually injected with 10 cc's and visualized. OMNIPAQUE, 350 MG, 150ML 150ML us ed. 13:37:41 HR=70 bpm, JAJT=274/79 mmhg, SpO2=91.0 %, Resp=21 B/min, Pain=0, Estefanía=10, Patrick=2 13:37:44 The RCA was injected and visualized at various angles. OMNIPAQUE, 350 MG, 150ML 150ML used . 13:40:20 The OROSCO Graft was injected and visualized at various angles. OMNIPAQUE, 350 MG, 150ML 150M L used. After removing the current catheter a MPA-2 INFINITI CATHETER FR 4 was advanced over a WIRE, 3M MJ .035 180CM 13:41:13 180CM. 13:42:42 HR=66 bpm, BXOT=278/70 mmhg, SpO2=93.0 %, Resp=21 B/min, Pain=0, Estefanía=10, Patrick=2 Recorded Pressure: Ao, HR=66, Condition=Condition 1 13:42:52 (Aorta) Ao 131/66/91 13:44:06 The SVG-PDA was injected and visualized at various angles. OMNIPAQUE, 350 MG, 150ML 150ML u sed. After removing the current catheter a JL 4.0 INFINITI CATHETER FR 4 was advanced over a WIRE, 3 MMJ .035 180CM 13:45:25 180CM. 13:45:32 The LCA was injected and visualized at various angles. OMNIPAQUE, 350 MG, 150ML 150ML used . 13:47:03 Catheter was removed 13:47:14 Case End Assessment: Final Case, HR=20 BPM, Rhythm=Sinus, PBFM=365/76 mmhg, Chest Pain=0, Edema=None, Color=Normal, Skin = Warm, Dry Right Pulses: Ross Ped=d, Femoral=2 13:47:22 Left Pulses: Ross Ped=d, Femoral=2 Neurological: State=Alert, Ox3, WELLS Respiration: Resp=15 B/min, SpO2=95 %, O2=0 lpm 13:47:31 Catheter(s) removed without difficulty 13:47:37 HR=67 bpm, XLUO=224/80 mmhg, SpO2=96.0 %, Resp=21 B/min, Pain=0, Estefanía=10, Patrick=2 13:47:53 No case complications noted. 13:47:57 Bedside Report will be given. 13:48:01 A Left Heart Cath was performed. 13:52:13 Vitals capture stopped. 13:52:23 Sheath(s) left in place, will be removed in Holding Area 13:52:39 Cine recording checked. 13:56:22 Patient moved to stretcher End Study - Contrast Media Used In Study Contrast Total Opened (mL) Total Used (mL) Total Wasted (mL) Omnipaque 50 50 0 End Study - Maximum Contrast Load Max Contrast Load (mL) 419.2 End Study - Radiation Exposure Fluoro Time (minutes) 3.4 End Study - Patient Disposition Complications Transferred To Interventional Outcome No Telemetry Bed No attempt made
[2017-06-22] MEDS ORDERED: SODIUM CHLORIDE 0.9% FLUSH 10 ML FLUSH IV FLUSH PRN (14:15)
[2017-06-22] MEDS ORDERED: BACITRACIN OINT 0.9 GM PKT TOP ONE (14:15)
[2017-06-22] MEDS ORDERED: MISC INFORMATION XX ONE (14:15)
[2017-06-22] MEDS ORDERED: ASPIRIN EC 81 MG TABEC PO ONE (14:15)
[2017-06-22] MEDS ORDERED: CLOPIDOGREL 75 MG TAB PO ONE (14:15)
[2017-06-22] MEDS ORDERED: IOHEXOL 350 MG/ML 50 ML BTL (for Cath Lab) OTHER ONE (15:11)
--- NOTE | 2017-06-22 15:37 | MA ---
cc: Blair Zambrano MD DATE: 06/22/2017 DATE: 06/22/2017 PROCEDURE PERFORMED: Left heart catheterization, left ventriculography, coronary arteriography, saphenous vein angiography, OROSCO angiography. INDICATION: Non-STEMI coronary artery disease, cardiomyopathy, status post CABG, diabetes mellitus, tobacco use, peripheral vascular disease. PROCEDURAL STATEMENT: The patient was brought to the cardiac catheterization laboratory, prepped and draped in the usual sterile fashion. 10 mL of 1% lidocaine was used to locally anesthetize the right common femoral artery. A 4-Prydeinig sheath was placed in the right common femoral artery, a 4-Prydeinig JR4, multipurpose and JL4 catheters were used to perform left and right coronary angiography, left ventriculography, coronary angiography, OROSCO angiography and saphenous vein angiography. FINDINGS: The LV pressure is 150/12-15. The ejection fraction is 40%. There is global hypokinesis. The left ventricle was enlarged fluoroscopically to at least mild to moderate degree. The apex appears to be severely hypokinetic to akinetic. The right coronary was occluded in the proximal segment. The vein graft to obtuse marginal vessel is widely patent. The lower elwha vessel beyond the graft insertion site has no significant obstructive disease. There is no retrograde filling. There is a bifurcation of the lower elwha vessel in the midsegment. Reference vessel diameter proximal to the bifurcation is 3 mm in diameter. Both branches are approximately 1.5 mm vessels and the OROSCO to the LAD is widely patent. There is competitive flow seen at the graft insertion site. The lower elwha LAD beyond the graft insertion does not appear to have any obvious focal stenosis. There appears to be what I would suspect is normal anatomical tapering from about a 2.75 mm vessel to about a 2 mm vessel as the LAD approaches the apex. The LAD is transapical and beyond the apex of the vessel is about a 1 mm vessel with no significant obstructive disease. The vein graft to the right PDA appears to be ectatic and/or appears ectatic due to multiple valves present. There is no significant focal obstruction; however. The lower elwha right PDA beyond the graft insertion site has no significant obstructive disease. It is probably a 2 mm vessel reference vessel diameter. There is retrograde filling of the right KRISTEN. However, the PDA proximal to the graft insertion site has a 95% stenosis. The angulation off the vein graft to the right PDA is 130 degrees and then the angulation of the right PDA to the right KRISTEN is another 130 degrees in the opposite direction creating a Z path. The right posterolateral artery has a reference vessel diameter of probably 2 to 2.25 mm in diameter with no significant obstructive disease. The left main coronary artery has no significant disease angiographically. The LAD has moderate to severe diffuse disease in the proximal mid-segment up to 50-60% angiographically. There is then competitive flow seen in the mid-segment. There is a stent in the proximal mid-segment which has 50% diffuse in-stent stenosis. First and second diagonal arteries are 1 mm reference vessel diameter with no significant disease angiographically. The third diagonal artery is a small to medium sized vessel, reference vessel diameter of maybe 2 mm, very tortuous ostial 60% stenosis. The left circumflex vessel has a proximal 20% stenosis. The first obtuse marginal vessel is a small vessel, 0.5 mm in diameter with no significant obstructive disease. The second marginal vessel is a medium sized vessel, reference vessel diameter to 2.25 to 2.5 mm. There is severe diffuse disease at least up to 75% throughout the proximal mid-segment just proximal to a bifurcation. Both branches of the bifurcation are small to medium-sized vessel, reference vessel diameter is 2 mm. The more medial branch has diffuse disease up to 75% throughout most of its proximal mid-segment. The remainder of the AV groove left circumflex vessel is a 1.5 mm reference vessel diameter with a 95% stenosis supplying a very small 0.5 mm diameter, 10 mm length posterolateral artery. CONCLUSIONS: 1. Non-ST elevation myocardial infarction. Suspect culprit lesion is the proximal right posterior descending artery, which is proximal to the vein graft insertion and/or the proximal mid-second obtuse marginal vessel and the medial branch of this vessel as detailed above. 2. Severe three-vessel coronary artery disease in a right dominant system as detailed above. 3. Three of three grafts patent. 4. Cardiomyopathy, ejection fraction 40%. The apex appears to be severely hypokinetic to akinetic. The left ventricle appears to be mild to moderately dilated. RECOMMENDATIONS: 1. Recommend medical management with Lipitor 80, aspirin 81 mg a day. Consider adding Plavix, Coreg, lisinopril. 2. Could consider performing PCI of the second obtuse marginal vessel; however, it is a relatively small reference vessel diameter, 2.25 to 2.5 mm diameter with a long segment of diffuse disease, I would estimate at least 30 mm and then another 20 mm in the medial branch and then of course involves the bifurcation with a 30-degree angulation with a more lateral branch making this a type C lesion and also high risk for stent thrombosis given the length and relatively small diameter. Therefore, would try to exhaust all medical options . If the patient still has moderate to severe anginal symptoms despite optimal medical therapy, again could consider high risk PCI under those circumstances. I have explained this to the patient. She agrees with initiating medical therapy first. 3. Strongly recommend smoking cessation. MD LUCILLE Olivier/JOEL , 02:00 PM , 03:36 PM
[2017-06-22] MEDS ORDERED: LISI10TA3 PO (15:44)
[2017-06-22] MEDS ORDERED: CARV6.25 PO (15:44)
[2017-06-22] MEDS ORDERED: ECASA81 PO (15:44)
[2017-06-22] MEDS ORDERED: NITROGLYCERIN 2% OINT 1 GM PACKET TOP ONE (18:15)
[2017-06-22] MEDS: MORPHINE SULFATE 2 MG/ML SYRINGE IV PUSH PRN (18:25)
[2017-06-22] MEDS ORDERED: ZOLPIDEM TARTRATE 5 MG TAB PO ONE (20:45)
[2017-06-22] MEDS: CARVEDILOL 6.25 MG TAB PO SCH (22:01)
[2017-06-22] MEDS: ATORVASTATIN 80 MG TAB PO SCH (22:02)
[2017-06-23] VITALS (9 sets, daily range): BP systolic 104–157; BP diastolic 56–85; PULSE 55–92; RESP 16–17; TEMP 97.6–98.3; O2SAT 93–96
[2017-06-23] MEDS: NITROGLYCERIN 2% OINT 1 GM PACKET TOP SCH ×5 (06:00→23:41)
[2017-06-23 06:14] LABS: HEMATOCRIT 37.9 % (35.0-46.0); HEMOGLOBIN 12.8 GM/DL (11.6-15.3); MEAN CELL VOLUME 81.9 FL (80.0-100.0); MEAN CORPUSCULAR HEMOGLOBIN 27.6 PG (27.0-34.0); MEAN CORPUSCULAR HGB CONC 33.7 % (32.0-36.0); MEAN PLATELET VOLUME 8.9 FL (7.0-11.0); PLATELET COUNT 191 TH/MM3 (150-450); RED BLOOD COUNT 4.63 MIL/MM3 (4.00-5.30); RED CELL DISTRIBUTION WIDTH 16.2 % (11.6-17.2); WHITE BLOOD COUNT 5.4 TH/MM3 (4.0-11.0)
[2017-06-23 06:41] LABS: BICARBONATE 30.2 MEQ/L (21.0-32.0); CALCIUM 9.1 MG/DL (8.5-10.1); CREATININE 1.09 MG/DL (0.50-1.00); MAGNESIUM 2.1 MG/DL (1.5-2.5)
[2017-06-23] MEDS: INSULIN ASPART SUPPLEMENTAL SCALE SQ SCH ×4 (08:00→21:00)
[2017-06-23] MEDS: FUROSEMIDE 40 MG TAB PO SCH (10:15)
[2017-06-23] MEDS: ASPIRIN EC 81 MG TABEC PO SCH (10:15)
[2017-06-23] MEDS: amLODIPine BESYLATE 5 MG TAB PO SCH (10:15)
[2017-06-23] MEDS: GABAPENTIN 300 MG CAP PO SCH ×2 (10:16→21:41)
[2017-06-23] MEDS: PANTOPRAZOLE SOD 40 MG DELAYED RELEASE TAB PO SCH (10:16)
[2017-06-23] MEDS: CLOPIDOGREL 75 MG TAB PO SCH (10:16)
[2017-06-23] MEDS: LISINOPRIL 10 MG TAB PO SCH (10:16)
[2017-06-23] MEDS: DULoxetine HCl DR 30 MG CAP PO SCH ×2 (10:16→21:41)
[2017-06-23] MEDS: CARVEDILOL 6.25 MG TAB PO SCH ×2 (10:16→21:41)
[2017-06-23] MEDS: SODIUM CHLORIDE 0.9% FLUSH 10 ML FLUSH IV FLUSH SCH ×2 (10:16→21:42)
[2017-06-23] MEDS: MORPHINE SULFATE 2 MG/ML SYRINGE IV PUSH PRN ×3 (10:17→21:43)
[2017-06-23] MEDS: BUDESONIDE-FORMOTEROL 160/4.5 MCG INHALER INH SCH ×2 (10:21→21:42)
--- NOTE | 2017-06-23 11:14 | HHI.PR ---
Subjective Remarks patient comfortable, no complains of chest pains, ambulating around, no rales no shortness of breath Objective Vitals Vital Signs Date Time Temp Pulse Resp B/P (MAP) Pulse Ox O2 Delivery O2 Flow Rate FiO2 06/23/17 08:00 98.3 65 17 157/85 (109) 95 06/23/17 04:00 73 06/23/17 04:00 97.6 67 16 119/56 (77) 95 06/23/17 00:00 70 06/23/17 00:00 98.1 92 16 118/62 (80) 95 06/22/17 22:00 98.2 117 18 126/86 (99) 96 06/22/17 20:00 97.4 70 16 110/54 (72) 95 06/22/17 20:00 72 06/22/17 17:15 97.3 67 18 136/64 (88) 92 06/22/17 14:05 94 Room Air 06/22/17 12:00 68 06/22/17 12:00 97.3 64 18 140/65 (90) 94 I/O 06/22/17 06/22/17 06/22/17 06/23/17 06/23/17 06/23/17 07:00 15:00 23:00 07:00 15:00 23:00 Intake Total 120 ml Balance 120 ml Intake Oral 120 ml # Voids 0 3 # Bowel Movements 0 0 Result Diagram: 06/23/17 0528 06/23/17 0528 Imaging Last Impressions Upper Extremity Ultrasound 06/21/171638 Signed Impressions: Service Date/Time: May 17:15 - CONCLUSION: Normal examination. Brandon Ospina MD Chest X-Ray 06/21/179 Signed Impressions: Service Date/Time: May 16:52 - CONCLUSION: Normal examination. Clips and wires suggest CABG. Brandon Ospina MD Objective Remarks awake and alert no distress lungs- clear regular rhythm abdomen- globularly soft, nontender right groin- no hematoma good peripheral pulses Procedures 06/22- cardiac cath A/P Assessment and Plan 57 years old female 1. NSTEMI/CAD- known CAD s/p cath- non obstructive EKG shows normal sinus rhythm without ST segment elevation/depression cleared for DC by cardiology Cardiology ff- cath continue ASA/Plavix. Coreg and Lisinopril DC home today if cleared with Dr. Zambrano 2. Diabetes mellitus Holding home metformin- restart 48 hours post cath - d/w patient Sliding-scale insulin Monitor blood glucose 3. CHF Continue home Lasix, carvedilol- dose increased 4. Hypertension/hyperlipidemia Continue home medications 5. Chronic kidney disease- stable 6. COPD in remission Continue Spiriva/Symbicort DuoNeb's Supplemental oxygen as needed 7 Complained of left shoulder pain- doubt angina -good range of motion- requested for shoulder xray diet- heart healthy. ADA Activity as tolerated- no heavy/strenuous activity, routine post cath care Continue med-s scripts written ff up with PCP- Ping French MD Jun 23, 2017 11:14
[2017-06-23] MEDS ORDERED: NITR2OIN TOP (11:18)
[2017-06-23] MEDS ORDERED: SPIRONOLACTONE 25 MG TAB PO ONE (15:00)
[2017-06-23] MEDS: SPIRONOLACTONE 25 MG TAB PO SCH (17:28)
--- NOTE | 2017-06-23 17:55 | RADRPT ---
EXAM DATE/TIME: 06/23/2017 17:45 [facility] COMPARISON: No previous studies available for comparison. INDICATIONS : Left shoulder pain with motion. No prior trauma. MEDICAL HISTORY : Cardiovascular disease. Chronic obstructive pulmonary disease. SURGICAL HISTORY : CABG. Carotid stent. ENCOUNTER: Initial ACUITY: 2 weeks PAIN SCORE: 5/10 LOCATION: Left shoulder. FINDINGS: Multiple view examination of the left shoulder demonstrates no evidence of fracture or dislocation. Degenerative changes. There is normal range of motion between internal and external rotation. Bony mineralization is normal. CONCLUSION: No acute fracture. Degenerative changes. Mika Bay MD on June 23, 2017 at 17:52 Board Certified Radiologist. This report was verified electronically.
--- NOTE | 2017-06-23 19:43 | PD.CARD.PN ---
Subjective Subjective Remarks asleep in nad, still having left shoulder pain Objective Medications Current Medications Medications (Trade) Dose Ordered Sig/Eric Route Start Time Stop Time Status Last Admin (Tylenol) 650 mg Q4H PRN PO 06/21/17 19:45 (Zofran Inj) 4 mg Q6H PRN IVP 06/21/17 19:45 06/22/17 06:50 (Narcan Inj) 0.4 mg UNSCH PRN IV PUSH 06/21/17 19:45 (Milk Of Magnesia Liq) 30 ml Q12H PRN PO 06/21/17 19:45 (Senokot) 17.2 mg Q12H PRN PO 06/21/17 19:45 (Dulcolax Supp) 10 mg DAILY PRN RECTAL 06/21/17 19:45 (Lactulose Liq) 30 ml DAILY PRN PO 06/21/17 19:45 (Morphine Inj) 2 mg Q3H PRN IV PUSH 06/21/17 19:45 06/23/17 17:27 (D50w (Vial) Inj) 50 ml UNSCH PRN IV PUSH 06/21/17 21:00 (Glucagon Inj) 1 mg UNSCH PRN OTHER 06/21/17 21:00 (NovoLOG SUPPLEMENTAL SCALE) 1 ACHS SLIDING SCALE SQ 06/21/17 21:00 (Norvasc) 5 mg DAILY PO 06/22/17 09:00 06/23/17 10:15 (Lipitor) 80 mg HS PO 06/22/17 21:00 06/22/17 22:02 (Symbicort 160-4.5 Mcg Inh) 2 puff Q12HR INH 06/22/17 09:00 06/23/17 10:21 (Cymbalta Dr) 30 mg BID PO 06/22/17 09:00 06/23/17 10:16 (Lasix) 40 mg DAILY PO 06/22/17 09:00 06/23/17 10:15 (Neurontin) 300 mg BID PO 06/22/17 09:00 06/23/17 10:16 (Protonix) 40 mg DAILY PO 06/22/17 09:00 06/23/17 10:16 Patient Own Medication PT OWN MED:Tiotropium Inh(Spir... DAILY INH 06/22/17 09:00 Future Hold (Duoneb Neb) 1 ampule Q4HR NEB PRN NEB 06/21/17 21:15 (NS Flush) 2 ml BID IV FLUSH 06/22/17 21:00 06/23/17 10:16 (NS Flush) 2 ml UNSCH PRN IV FLUSH 06/22/17 14:15 (Coreg) 6.25 mg Q12HR PO 06/22/17 21:00 06/23/17 10:16 (Prinivil) 10 mg DAILY PO 06/23/17 09:00 06/23/17 10:16 (Ecotrin Ec) 162 mg DAILY PO 06/23/17 09:00 06/23/17 10:15 (Plavix) 75 mg DAILY PO 06/23/17 09:00 06/23/17 10:16 (Nitroglycerin 2% Oint) 2 inch Q6HR TOP 06/23/17 00:00 06/23/17 17:28 (Aldactone) 25 mg BID@18 PO 06/23/17 18:00 06/23/17 17:28 Vital Signs / I&O Vital Signs Date Time Temp Pulse Resp B/P (MAP) Pulse Ox O2 Delivery O2 Flow Rate FiO2 06/23/17 16:00 Room Air 06/23/17 16:00 97.6 59 17 140/79 (99) 96 06/23/17 12:00 Room Air 06/23/17 12:00 97.9 75 17 132/73 (92) 93 06/23/17 08:00 98.3 65 17 157/85 (109) 95 06/23/17 08:00 Room Air 06/23/17 04:00 73 06/23/17 04:00 97.6 67 16 119/56 (77) 95 06/23/17 00:00 70 06/23/17 00:00 98.1 92 16 118/62 (80) 95 06/22/17 22:00 98.2 117 18 126/86 (99) 96 06/22/17 20:00 97.4 70 16 110/54 (72) 95 06/22/17 20:00 72 I/O 06/22/17 06/22/17 06/22/17 06/23/17 06/23/17 06/23/17 07:00 15:00 23:00 07:00 15:00 23:00 Intake Total 120 ml Balance 120 ml Intake Oral 120 ml # Voids 0 3 5 # Bowel Movements 0 0 Physical Exam GENERAL: SKIN: Warm and dry. HEAD: Normocephalic. EYES: No scleral icterus. No injection or drainage. NECK: Supple, trachea midline. No JVD or lymphadenopathy. CARDIOVASCULAR: Regular rate and rhythm without murmurs, gallops, or rubs. RESPIRATORY: Breath sounds equal bilaterally. No accessory muscle use. GASTROINTESTINAL: Abdomen soft, non-tender, nondistended. MUSCULOSKELETAL: No cyanosis, or edema. BACK: Nontender without obvious deformity. No CVA tenderness. Laboratory Laboratory Tests Test 06/23/17 05:28 White Blood Count 5.4 TH/MM3 Red Blood Count 4.63 MIL/MM3 Hemoglobin 12.8 GM/DL Hematocrit 37.9 % Mean Corpuscular Volume 81.9 FL Mean Corpuscular Hemoglobin 27.6 PG Mean Corpuscular Hemoglobin Concent 33.7 % Red Cell Distribution Width 16.2 % Platelet Count 191 TH/MM3 Mean Platelet Volume 8.9 FL Blood Urea Nitrogen 12 MG/DL Creatinine 1.09 MG/DL Random Glucose 89 MG/DL Calcium Level 9.1 MG/DL Magnesium Level 2.1 MG/DL Sodium Level 141 MEQ/L Potassium Level 3.7 MEQ/L Chloride Level 103 MEQ/L Carbon Dioxide Level 30.2 MEQ/L Anion Gap 8 MEQ/L Estimat Glomerular Filtration Rate 51 ML/MIN B-Type Natriuretic Peptide 313 PG/ML Imaging Last 24 hours Impressions Shoulder X-Ray 06/23/17 0000 Signed Impressions: Service Date/Time: Friday, June 23, 2017 17:45 - CONCLUSION: No acute fracture. Degenerative changes. Mika Bay MD Assessment and Plan Problem List: (1) CAD (coronary artery disease) ICD Codes: I25.10 - Atherosclerotic heart disease of [place] coronary artery without angina pectoris Status: Acute (2) LEFT CAROTID ENDARECTOMY Status: Acute (3) Pulmonary congestion ICD Codes: R09.89 - Pulmonary congestion Status: Acute (4) TIA (transient ischemic attack) ICD Codes: G45.9 - Transient cerebral ischemia Status: Acute (5) CHF (congestive heart failure) ICD Codes: I50.9 - Congestive heart failure Status: Chronic (6) Cardiomyopathy ICD Codes: I42.9 - Cardiomyopathy Status: Acute (7) Tobacco abuse counseling ICD Codes: Z71.6 - Tobacco abuse counseling Status: Acute (8) COPD (chronic obstructive pulmonary disease) ICD Codes: J44.9 - Chronic obstructive pulmonary disease, unspecified Status: Chronic (9) Left carotid artery stenosis ICD Codes: I65.22 - Stenosis of left carotid artery Status: Acute (10) Diabetes mellitus, type 2 ICD Codes: E11.9 - Type 2 diabetes mellitus without complications Status: Acute (11) Hx of CABG ICD Codes: Z95.1 - History of coronary artery bypass surgery Status: Acute (12) S/P AAA repair ICD Codes: Z98.890 - Status post abdominal aortic aneurysm repair; Z86.79 - Personal history of other diseases of the circulatory system Status: Acute Assessment and Plan 1.) Cardiomyopathy - add aldactone 25 mg bid, continue coreg, lisinopril, lasix , f/u bmp/bnp 2.) CAD - i dont think her shoulder pain is angina, bridgett i can nnot rule it out as she has disease in rpda proximal to svg insertion site and diffuse disease in small to medium sized om; rec med man initially as rpda is unstentable and om would require long length of stent and has diameter @ 2.25 mm; continue aspirin, lipitor 3.) Patient strongly advised to stop smoking Blair Zambrano MD Jun 23, 2017 19:43
[2017-06-23] MEDS: ATORVASTATIN 80 MG TAB PO SCH (21:42)
[2017-06-23] MEDS: ONDANSETRON HCL 4 MG/2 ML VIAL IVP PRN (21:44)
[2017-06-24] VITALS: BP 112/56; PULSE 60; RESP 17; TEMP 98; O2SAT 95
[2017-06-24 00:10] VITALS: PULSE 66
[2017-06-24] MEDS: MORPHINE SULFATE 2 MG/ML SYRINGE IV PUSH PRN ×3 (03:48→15:35)
[2017-06-24 03:56] VITALS: PULSE 57
[2017-06-24 04:00] VITALS: BP 109/54; PULSE 62; RESP 18; TEMP 99.9; O2SAT 93
[2017-06-24] MEDS: NITROGLYCERIN 2% OINT 1 GM PACKET TOP SCH ×2 (05:20→15:35)
[2017-06-24 07:15] LABS: BICARBONATE 32.8 MEQ/L (21.0-32.0); CREATININE 1.28 MG/DL (0.50-1.00)
[2017-06-24 07:16] LABS: MAGNESIUM 2.2 MG/DL (1.5-2.5)
[2017-06-24] MEDS: INSULIN ASPART SUPPLEMENTAL SCALE SQ SCH ×2 (07:52→12:00)
[2017-06-24 08:00] VITALS: BP 106/52; PULSE 57; PULSE 60; RESP 20; TEMP 98.5; O2SAT 90
[2017-06-24] MEDS: CARVEDILOL 6.25 MG TAB PO SCH (09:00)
[2017-06-24] MEDS: amLODIPine BESYLATE 5 MG TAB PO SCH (09:00)
[2017-06-24] MEDS: LISINOPRIL 10 MG TAB PO SCH (09:00)
--- NOTE | 2017-06-24 09:55 | PD.CARD.PN ---
Subjective Subjective Remarks dyspnea improved Objective Medications Current Medications Medications (Trade) Dose Ordered Sig/Eric Route Start Time Stop Time Status Last Admin (Tylenol) 650 mg Q4H PRN PO 06/21/17 19:45 (Zofran Inj) 4 mg Q6H PRN IVP 06/21/17 19:45 06/23/17 21:44 (Narcan Inj) 0.4 mg UNSCH PRN IV PUSH 06/21/17 19:45 (Milk Of Magnesia Liq) 30 ml Q12H PRN PO 06/21/17 19:45 (Senokot) 17.2 mg Q12H PRN PO 06/21/17 19:45 (Dulcolax Supp) 10 mg DAILY PRN RECTAL 06/21/17 19:45 (Lactulose Liq) 30 ml DAILY PRN PO 06/21/17 19:45 (Morphine Inj) 2 mg Q3H PRN IV PUSH 06/21/17 19:45 06/24/17 03:48 (D50w (Vial) Inj) 50 ml UNSCH PRN IV PUSH 06/21/17 21:00 (Glucagon Inj) 1 mg UNSCH PRN OTHER 06/21/17 21:00 (NovoLOG SUPPLEMENTAL SCALE) 1 ACHS SLIDING SCALE SQ 06/21/17 21:00 (Norvasc) 5 mg DAILY PO 06/22/17 09:00 06/23/17 10:15 (Lipitor) 80 mg HS PO 06/22/17 21:00 06/23/17 21:42 (Symbicort 160-4.5 Mcg Inh) 2 puff Q12HR INH 06/22/17 09:00 06/23/17 21:42 (Cymbalta Dr) 30 mg BID PO 06/22/17 09:00 06/23/17 21:41 (Lasix) 40 mg DAILY PO 06/22/17 09:00 06/23/17 10:15 (Neurontin) 300 mg BID PO 06/22/17 09:00 06/23/17 21:41 (Protonix) 40 mg DAILY PO 06/22/17 09:00 06/23/17 10:16 Patient Own Medication PT OWN MED:Tiotropium Inh(Spir... DAILY INH 06/22/17 09:00 Future Hold (Duoneb Neb) 1 ampule Q4HR NEB PRN NEB 06/21/17 21:15 (NS Flush) 2 ml BID IV FLUSH 06/22/17 21:00 06/23/17 21:42 (NS Flush) 2 ml UNSCH PRN IV FLUSH 06/22/17 14:15 (Coreg) 6.25 mg Q12HR PO 06/22/17 21:00 06/23/17 21:41 (Prinivil) 10 mg DAILY PO 06/23/17 09:00 06/23/17 10:16 (Ecotrin Ec) 162 mg DAILY PO 06/23/17 09:00 06/23/17 10:15 (Plavix) 75 mg DAILY PO 06/23/17 09:00 06/23/17 10:16 (Nitroglycerin 2% Oint) 2 inch Q6HR TOP 06/23/17 00:00 06/24/17 05:20 (Aldactone) 25 mg BID@,18 PO 06/23/17 18:00 06/23/17 17:28 Vital Signs / I&O Vital Signs Date Time Temp Pulse Resp B/P (MAP) Pulse Ox O2 Delivery O2 Flow Rate FiO2 06/24/17 08:00 Room Air 06/24/17 08:00 98.5 60 20 106/52 (70) 90 06/24/17 04:00 99.9 62 18 109/54 (72) 93 06/24/17 04:00 Room Air 06/24/17 03:56 57 06/24/17 00:10 66 06/24/17 00:00 98.0 60 17 112/56 (74) 95 06/24/17 00:00 Room Air 06/23/17 21:45 Room Air 06/23/17 20:05 65 06/23/17 20:00 97.6 72 17 104/61 (75) 95 06/23/17 16:12 58 06/23/17 16:00 Room Air 06/23/17 16:00 97.6 59 17 140/79 (99) 96 06/23/17 12:00 Room Air 06/23/17 12:00 97.9 75 17 132/73 (92) 93 06/23/17 12:00 60 I/O 06/23/17 06/23/17 06/23/17 06/24/17 06/24/1718 07:00 15:00 23:00 07:00 15:00 23:00 Intake Total 120 ml Balance 120 ml Intake Oral 120 ml # Voids 5 2 # Bowel Movements 0 Physical Exam GENERAL: SKIN: Warm and dry. HEAD: Normocephalic. EYES: No scleral icterus. No injection or drainage. NECK: Supple, trachea midline. No JVD or lymphadenopathy. CARDIOVASCULAR: Regular rate and rhythm without murmurs, gallops, or rubs. RESPIRATORY: Breath sounds equal bilaterally. No accessory muscle use. GASTROINTESTINAL: Abdomen soft, non-tender, nondistended. MUSCULOSKELETAL: No cyanosis, or edema. BACK: Nontender without obvious deformity. No CVA tenderness. Laboratory Laboratory Tests Test 06/24/17 05:00 Blood Urea Nitrogen 14 MG/DL Creatinine 1.28 MG/DL Random Glucose 86 MG/DL Calcium Level 9.0 MG/DL Magnesium Level 2.2 MG/DL Sodium Level 140 MEQ/L Potassium Level 4.1 MEQ/L Chloride Level 100 MEQ/L Carbon Dioxide Level 32.8 MEQ/L Anion Gap 7 MEQ/L Estimat Glomerular Filtration Rate 43 ML/MIN B-Type Natriuretic Peptide 169 PG/ML Assessment and Plan Problem List: (1) CAD (coronary artery disease) ICD Codes: I25.10 - Atherosclerotic heart disease of [place] coronary artery without angina pectoris Status: Acute (2) LEFT CAROTID ENDARECTOMY Status: Acute (3) Pulmonary congestion ICD Codes: R09.89 - Pulmonary congestion Status: Acute (4) TIA (transient ischemic attack) ICD Codes: G45.9 - Transient cerebral ischemia Status: Acute (5) CHF (congestive heart failure) ICD Codes: I50.9 - Congestive heart failure Status: Chronic (6) Cardiomyopathy ICD Codes: I42.9 - Cardiomyopathy Status: Acute (7) Tobacco abuse counseling ICD Codes: Z71.6 - Tobacco abuse counseling Status: Acute (8) COPD (chronic obstructive pulmonary disease) ICD Codes: J44.9 - Chronic obstructive pulmonary disease, unspecified Status: Chronic (9) Left carotid artery stenosis ICD Codes: I65.22 - Stenosis of left carotid artery Status: Acute (10) Diabetes mellitus, type 2 ICD Codes: E11.9 - Type 2 diabetes mellitus without complications Status: Acute (11) Hx of CABG ICD Codes: Z95.1 - History of coronary artery bypass surgery Status: Acute (12) S/P AAA repair ICD Codes: Z98.890 - Status post abdominal aortic aneurysm repair; Z86.79 - Personal history of other diseases of the circulatory system Status: Acute Assessment and Plan 1.) Cardiomyopathy - add aldactone 25 mg bid, continue coreg, lisinopril, lasix , f/u bmp/bnp, bnp and symptoms improved, ok to dc from cv standpoint, patient advised to f/u with me 06/25/17 2.) CAD - i dont think her shoulder pain is angina, bridgett i can nnot rule it out as she has disease in rpda proximal to svg insertion site and diffuse disease in small to medium sized om; rec med man initially as rpda is unstentable and om would require long length of stent and has diameter @ 2.25 mm; continue aspirin, lipitor 3.) Patient strongly advised to stop smoking Blair Zambrano MD Jun 24, 2017 09:55
--- NOTE | 2017-06-24 10:06 | HHI.PR ---
Subjective Remarks patient feeling better up and ambulating telemetry- in SR Objective Vitals Vital Signs Date Time Temp Pulse Resp B/P (MAP) Pulse Ox O2 Delivery O2 Flow Rate FiO2 06/24/17 08:00 Room Air 06/24/17 08:00 98.5 60 20 106/52 (70) 90 06/24/17 04:00 99.9 62 18 109/54 (72) 93 06/24/17 04:00 Room Air 06/24/17 03:56 57 06/24/17 00:10 66 06/24/17 00:00 98.0 60 17 112/56 (74) 95 06/24/17 00:00 Room Air 06/23/17 21:45 Room Air 06/23/17 20:05 65 06/23/17 20:00 97.6 72 17 104/61 (75) 95 06/23/17 16:12 58 06/23/17 16:00 Room Air 06/23/17 16:00 97.6 59 17 140/79 (99) 96 06/23/17 12:00 Room Air 06/23/17 12:00 97.9 75 17 132/73 (92) 93 06/23/17 12:00 60 I/O 06/23/17 06/23/17 06/23/17 06/24/17 06/24/17 06/24/17 07:00 15:00 23:00 07:00 15:00 23:00 Intake Total 120 ml Balance 120 ml Intake Oral 120 ml # Voids 5 2 # Bowel Movements 0 Result Diagram: 06/23/17 0528 06/24/17 0500 Imaging Last Impressions Shoulder X-Ray 06/23/17 0000 Signed Impressions: Service Date/Time: Friday, June 23, 2017 17:45 - CONCLUSION: No acute fracture. Degenerative changes. Mika Bay MD Upper Extremity Ultrasound 06/21/17 1639 Signed Impressions: Service Date/Time: May 17:15 - CONCLUSION: Normal examination. Brandon Ospina MD Chest X-Ray 06/21/17 163 Signed Impressions: Service Date/Time: May 16:52 - CONCLUSION: Normal examination. Clips and wires suggest CABG. Brandon Ospina MD Objective Remarks awake and alert no distress lungs- clear, occasional rhonchi shoulders - good range of motion regular rhythm abdomen- globularly soft, nontender right groin- no hematoma, no leg swelling, no edmea, no calf tenderness good peripheral pulses Procedures 06/22- cardiac cath A/P Assessment and Plan 57 years old female 1. NSTEMI/CAD- known CAD s/p cath- non obstructive EKG shows normal sinus rhythm without ST segment elevation/depression cleared for DC by cardiology Cardiology ff- cath continue ASA/Plavix. Coreg and Lisinopril, aldactone added DC home today- cleared [place]- ff up with him tomorrow 2. Diabetes mellitus - good readings Holding home metformin for now - d/w patient ff up with PCP Sliding-scale insulin Monitor blood glucose 3. CHF Continue home Lasix, carvedilol- dose increased 4. Hypertension/hyperlipidemia Continue home medications 5. Chronic kidney disease- stable 6. COPD in remission Continue Spiriva/Symbicort DuoNeb's Supplemental oxygen as needed 7 Complained of left shoulder pain- doubt angina -good range of motion- requested for shoulder xray diet- heart healthy. ADA Activity as tolerated- no heavy/strenuous activity, routine post cath care Continue med-s scripts written ff up with PCP- Dr. Mark Rojas,Ping Barr MD Jun 24, 2017 10:06
[2017-06-24] MEDS ORDERED: SPIR25 PO (10:09)
[2017-06-24] MEDS: PANTOPRAZOLE SOD 40 MG DELAYED RELEASE TAB PO SCH (10:11)
[2017-06-24] MEDS: FUROSEMIDE 40 MG TAB PO SCH (10:13)
[2017-06-24] MEDS: GABAPENTIN 300 MG CAP PO SCH (10:13)
[2017-06-24] MEDS: CLOPIDOGREL 75 MG TAB PO SCH (10:13)
[2017-06-24] MEDS: DULoxetine HCl DR 30 MG CAP PO SCH (10:13)
[2017-06-24] MEDS: ASPIRIN EC 81 MG TABEC PO SCH (10:13)
[2017-06-24] MEDS: SODIUM CHLORIDE 0.9% FLUSH 10 ML FLUSH IV FLUSH SCH (10:14)
[2017-06-24] MEDS: ONDANSETRON HCL 4 MG/2 ML VIAL IVP PRN ×2 (10:14→15:34)
[2017-06-24] MEDS: SPIRONOLACTONE 25 MG TAB PO SCH (10:15)
[2017-06-24] MEDS: BUDESONIDE-FORMOTEROL 160/4.5 MCG INHALER INH SCH (10:15)
--- NOTE | 2017-06-24 18:05 | HHI.DS ---
Discharge Summary Admission Date Jun 21, 2017 at 19:11 Discharge Date: Jun 24, 2017 Admitting Diagnosis Elevated troponin, hyperkalemia (1) NSTEMI (non-ST elevated myocardial infarction) ICD Code: I21.4 - Non-ST elevation (NSTEMI) myocardial infarction Diagnosis: Principal Status: Acute Procedures 06/22- cardiac cath Brief History - From Admission 57-year-old female with past medical history significant for COPD, CHF (EF of 25 -30% on 09/30/14), CKD, diabetes mellitus, hypertension and hyperlipidemia presents to the emergency department for evaluation of chest pain/pressure. The patient reports her chest pain started yesterday and radiates to her neck and down her left arm. She reports that her PCP sent her into the emergency department for further evaluation of this chest pain and hyperkalemia on outpatient labs. Her cable coverer is Dr. Clarke. She denies any shortness of breath worse than baseline. No diaphoretic episodes. No fever/chills. No nausea/vomiting/diarrhea/abdominal pain. No weakness or fatigue. No lateralizing signs/symptoms. CBC/BMP: 06/23/17 0528 06/24/17 0500 Significant Findings Laboratory Tests Test 06/21/17 19:25 06/22/17 02:51 06/22/17 06:55 06/23/17 05:28 Troponin I 0.06 NG/ML (0.02-0.05) 0.07 NG/ML (0.02-0.05) Monocytes (%) (Auto) 8.9 % (0.0-8.0) Eosinophils (%) (Auto) 4.4 % (0.0-4.0) Random Glucose 108 MG/DL (74-106) Estimat Glomerular Filtration Rate 59 ML/MIN (>89) 51 ML/MIN (>89) Creatinine 1.09 MG/DL (0.50-1.00) B-Type Natriuretic Peptide 313 PG/ML (0-100) Test 06/24/17 05:00 Creatinine 1.28 MG/DL (0.50-1.00) Carbon Dioxide Level 32.8 MEQ/L (21.0-32.0) Estimat Glomerular Filtration Rate 43 ML/MIN (>89) B-Type Natriuretic Peptide 169 PG/ML (0-100) Imaging Last Impressions Shoulder X-Ray 06/23/17 0000 Signed Impressions: Service Date/Time: Friday, June 23, 2017 17:45 - CONCLUSION: No acute fracture. Degenerative changes. Mika Bay MD Upper Extremity Ultrasound 06/21/17 1639 Signed Impressions: Service Date/Time: May 17:15 - CONCLUSION: Normal examination. Brandon Ospina MD Chest X-Ray 06/21/17 163 Signed Impressions: Service Date/Time: May 16:52 - CONCLUSION: Normal examination. Clips and wires suggest CABG. Brandon Ospina MD PE at Discharge awake and alert no distress lungs- clear, occasional rhonchi shoulders - good range of motion regular rhythm abdomen- globularly soft, nontender right groin- no hematoma, no leg swelling, no edmea, no calf tenderness good peripheral pulses Pt update on day of discharge afebrile no pain vital stable no shortness of breath Hospital Course 57 years old female 1. NSTEMI/CAD- known CAD s/p cath- non obstructive EKG shows normal sinus rhythm without ST segment elevation/depression cleared for DC by cardiology Cardiology ff- cath continue ASA/Plavix. Coreg and Lisinopril, aldactone added DC home today- cleared [place]- ff up with him tomorrow 2. Diabetes mellitus - good readings Holding home metformin for now - d/w patient ff up with PCP Sliding-scale insulin Monitor blood glucose 3. CHF Continue home Lasix, carvedilol- dose increased 4. Hypertension/hyperlipidemia Continue home medications 5. Chronic kidney disease- stable 6. COPD in remission Continue Spiriva/Symbicort DuoNeb's Supplemental oxygen as needed 7 Complained of left shoulder pain- doubt angina -good range of motion- requested for shoulder xray diet- heart healthy. ADA Activity as tolerated- no heavy/strenuous activity, routine post cath care Continue med-s scripts written ff up with PCP- Dr. Flores Pt Condition on Discharge: Stable Discharge Disposition: Discharge Home Discharge Time: > 30 minutes Discharge Instructions DIET: Follow Instructions for: Heart Healthy Diet, Diabetic Diet Speech Therapy-Diet Recommends: Regular Activities you can perform: Weight Bearing as Ruth Activities to Avoid: Strenuous Activity Follow up Referrals: Cardiology - 3-5 Days with Blair Clarke MD Cardiology @ DR. CLARKE PCP Follow-up - 06/26/17 with Mark PCP Follow-up @ DR. FLORES New Orders: COMP MET PROF (CMP) - 06/25/[address] Medications: Aspir[address] DR (Aspirin DR) 81 Mg Tabdr 162 MG PO DAILY for CAD for 30 Days, #60 TAB 1 Refill Carvedilol (Coreg) 6.25 Mg Tab 6.25 MG PO Q12HR for CARD for 30 Days, TAB Lisinopril (Lisinopril) 10 Mg Tab 10 MG PO DAILY for cardio for 30 Days, #30 TAB Nitroglycerin Topical (Nitro-Bid Topical) 2 % Oint 2 INCH TOP Q6HR for CAD for 30 Days, TUBE Spironolactone (Aldactone) 25 Mg Tab 25 MG PO BID@ for CMP for 30 Days, TAB Continued Medications: Amlodipine (Amlodipine) 5 Mg Tab 5 MG PO DAILY for Blood Pressure Management, #90 TAB 1 Refill Atorvastatin (Atorvastatin) 80 Mg Tab 80 MG PO HS for Cholesterol Management, #90 TAB 1 Refill Budesonide-Formoterol Inh (Symbicort Inh) 160-4.5 Mcg/Act Aero 2 PUFF INH Q12HR, #1 INHALER 5 Refills Clopidogrel (Clopidogrel) 75 Mg Tab 75 MG PO DAILY for Blood Clot Prevention, #90 TAB [address] (Duloxetine DR) 30 Mg Capdr 30 MG PO BID, #30 CAP 0 Refills Furosemide (Furosemide) 40 Mg Tab 40 MG PO DAILY, #90 TAB 1 Refill Gabapentin (Gabapentin) 300 Mg Cap 300 MG PO BID, #720 CAP 0 Refills Nystatin Topical (Nystop Topical) 100,000 Unit/Gm Powd 1 APPLIC TOPICAL Q12HR for Infection, #1 BOTTLE 4 Refills Pantoprazole (Pantoprazole) 40 Mg Tab 40 MG PO DAILY for Reflux, #90 TAB 0 Refills Tiotropium Inh (Spiriva Respimat Inh) 2.5 Mcg/Act Aero 2 PUFF INH DAILY for COPD, #1 INHALER 8 Refills 2.5 mcg = 1 inhalation Discontinued Medications: Carvedilol (Carvedilol) 3.125 Mg Tab 3.125 MG PO BID, #180 TAB 1 Refill Lisinopril (Lisinopril) 5 Mg Tab 5 MG PO DAILY for Blood Pressure Management, #90 TAB 1 Refill Metformin (Metformin) 500 Mg Tab 1000 MG PO BIDPC for Blood Sugar Management, #360 TAB 1 Refill With meals Ping Rojas MD Jun 24, 2017 18:04
== END 2017-06-24 16:13 | disposition home or self-care (01) | DRG 281 ==
LOC: NEPE 15:34 → NEDA 19:11 → N04B 20:11
PROVIDERS: ADMIT Internal Medicine; ATTEND Internal Medicine
PROC: B2181ZZ Fluoroscopy of Left Internal Mammary Bypass Graft using Low Osmolar Contrast (ICD-10-PCS; 2017-06-22)
PROC: B2111ZZ Fluoroscopy of Multiple Coronary Arteries using Low Osmolar Contrast (ICD-10-PCS; 2017-06-22)
PROC: B2131ZZ Fluoroscopy of Multiple Coronary Artery Bypass Grafts using Low Osmolar Contrast (ICD-10-PCS; 2017-06-22)
PROC: B2151ZZ Fluoroscopy of Left Heart using Low Osmolar Contrast (ICD-10-PCS; 2017-06-22)
PROC: 4A023N7 Measurement of Cardiac Sampling and Pressure, Left Heart, Percutaneous Approach (ICD-10-PCS; principal; 2017-06-22 13:00)
DX: I21.4 Non-ST elevation (NSTEMI) myocardial infarction (principal); I13.0 Hypertensive heart and chronic kidney disease with heart failure and stage 1 through stage 4 chronic kidney disease, or unspecified chronic kidney disease; I42.9 Cardiomyopathy, unspecified; I50.9 Heart failure, unspecified; T82.858A Stenosis of other vascular prosthetic devices, implants and grafts, initial encounter; I73.9 Peripheral vascular disease, unspecified; I25.2 Old myocardial infarction; N18.9 Chronic kidney disease, unspecified; E87.5 Hyperkalemia; E11.22 Type 2 diabetes mellitus with diabetic chronic kidney disease; J44.9 Chronic obstructive pulmonary disease, unspecified; G62.1 Alcoholic polyneuropathy; I49.3 Ventricular premature depolarization; I25.10 Atherosclerotic heart disease of native coronary artery without angina pectoris; E78.5 Hyperlipidemia, unspecified; I65.22 Occlusion and stenosis of left carotid artery; F10.10 Alcohol abuse, uncomplicated; F12.90 Cannabis use, unspecified, uncomplicated; F17.210 Nicotine dependence, cigarettes, uncomplicated; Z79.84 Long term (current) use of oral hypoglycemic drugs; Z86.73 Personal history of transient ischemic attack (TIA), and cerebral infarction without residual deficits; Z95.1 Presence of aortocoronary bypass graft; Z95.5 Presence of coronary angioplasty implant and graft
CPT/HCPCS: 71046; 73030; 80048; 80053; 82550; 82552; 82810; 82948; 83735; 83880; 84484; 85025; 85027; 85610; 85730; 93005; 93459; 93971; 96374; 99152; C1769; C1893; J1644; J1650; J2250; J2270; J2405; J3010; Q9967

== ENCOUNTER 2017-07-02 09:05 | Emergency (ER) | payer MEDICARE, OTHER ==
[~2017-07-02] VITALS: Ht 157.5 cm; Wt 77.0 kg
[~2017-07-02 09:05] MED LIST changes: -ASPI1TAB69 PO; -CARV3.12 PO; +CARV6.25 PO; +ECASA81 PO; -LISI-519 PO; +LISI10TA3 PO; -METF500T PO; +NITR2OIN TOP; +SPIR25 PO
[2017-07-02 09:06] VITALS: BP 152/100; PULSE 100; RESP 19; TEMP 97.5; O2SAT 96
[2017-07-02 09:10] VITALS: O2SAT 96
[2017-07-02] MEDS ORDERED: diphenhydrAMINE HCL 50 MG/ML VIAL IV PUSH ONE (09:30)
[2017-07-02] MEDS ORDERED: SODIUM CHLORID 0.9% 500 ML INJ 500 ML IV ONE ×2 (09:30→11:15)
[2017-07-02] MEDS ORDERED: PROCHLORPERAZINE INJ 10 MG/2 ML VIAL IV PUSH ONE (09:30)
[2017-07-02] MEDS ORDERED: SODIUM CHLORIDE 0.9% FLUSH 10 ML FLUSH IVF PRN (09:30)
--- NOTE | 2017-07-02 09:38 | PD ---
HPI Chief Complaint: Chest Pain Time Seen by Provider: 09:13 Travel History International Travel<30 days: No Contact w/Intl Traveler<30days: No Traveled to known affect area: No History of Present Illness HPI This is a 57 year old female who presents to the emergency department with headache, vomiting and diarrhea that started four nights ago. She says the headache came on gradually after dinner and has worsened over the past 4 days, constant, throbbing, involving the back of her head and her neck, associated with multiple episodes of vomiting and loose stools every 3-4 hours. She denies any fever. Her blood pressure has been running higher than normal in the 140s to 160s. She was unable to keep her home medications down yesterday. PFSH Past Medical History Anemia: Yes Asthma: No Autoimmune Disease: No Blood Disorders: No Anxiety: No Depression: No Heart Rhythm Problems: Yes (a-fib) Cancer: No Cardiac Catheterization: Yes Cardiovascular Problems: Yes High Cholesterol: Yes Chest Pain: Yes Congestive Heart Failure: Yes COPD: Yes Cerebrovascular Accident: Yes (TIA'S) Diabetes: Yes Diminished Hearing: No Endocrine: No Genitourinary: Yes Hypertension: Yes Immune Disorder: No Musculoskeletal: No Neurologic: Yes (NEUROPATHY ) Psychiatric: No Reproductive: No Respiratory: Yes Migraines: No Myocardial Infarction: Yes (2009) Radiation Therapy: No Seizures: No Sleep Apnea: No Thyroid Disease: No PNEUMOCCOCAL Vaccine (Year): 3 ?: Not Tubal Ligation: Yes Past Surgical History Abdominal Surgery: Yes (AAA) AICD: No Cardiac Surgery: Yes (CABG X 4 2009, AAA, FEMP/POP BYPASS BILATERAL) Coronary Stent: Yes Ear Surgery: No Endocrine Surgery: No Eye Surgery: No Genitourinary Surgery: No Gynecologic Surgery: Yes (TUBAL LIGATION) Oral Surgery: No Pacemaker: No Thoracic Surgery: No Other Surgery: Yes (AAA/neuropathy, trip bypass) Social History Alcohol Use: No (QUIT 04/2014) Tobacco Use: No (QUIT 2007) Substance Use: Yes (MARIJUANA) Allergies-Medications (Allergen,Severity, Reaction): Coded Allergies: No Known Allergies (Verified Allergy, Unknown, 07/02/17) Reported Meds & Prescriptions Reported Meds & Active Scripts Active Aldactone (Spironolactone) 25 Mg Tab 25 Mg PO BID@ 30 Days Nitro-Bid Topical (Nitroglycerin) 2 % Oint 2 Inch TOP Q6HR [address] (Aspirin) 81 Mg Tabdr 162 Mg PO DAILY 30 Days Lisinopril 10 Mg Tab 10 Mg PO DAILY 30 Days Coreg (Carvedilol) 6.25 Mg Tab 6.25 Mg PO Q12HR 30 Days Spiriva Respimat Inh (Tiotropium Inh) 2.5 Mcg/Act Aero 2 Puff INH DAILY 2.5 mcg = 1 inhalation Atorvastatin (Atorvastatin Calcium) 80 Mg Tab 80 Mg PO HS Symbicort Inh (Budesonide/Formoterol Fumarate) 160-4.5 Mcg/Act Aero 2 Puff INH Q12HR Clopidogrel (Clopidogrel Bisulfate) 75 Mg Tab 75 Mg PO DAILY Nystop Topical (Nystatin Topical) 100,000 Unit/Gm Powd 1 Applic TOPICAL Q12HR Amlodipine (Amlodipine Besylate) 5 Mg Tab 5 Mg PO DAILY Furosemide 40 Mg Tab 40 Mg PO DAILY Pantoprazole (Pantoprazole Sodium) 40 Mg Tab 40 Mg PO DAILY Reported Gabapentin 300 Mg Cap 300 Mg PO BID Duloxetine DR (Duloxetine HCl) 30 Mg Capdr 30 Mg PO BID Review of Systems Except as stated in HPI: all other systems reviewed are Neg Physical Exam Narrative GENERAL: SKIN: Warm and dry.Dry with skin tenting. HEAD: Atraumatic. Normocephalic. EYES: Pupils equal and round. No scleral icterus. No injection or drainage. ENT: No nasal bleeding or discharge. Mucous membranes pink and moist. NECK: Trachea midline. No meningismus. CARDIOVASCULAR: Regular rate and rhythm. RESPIRATORY: No accessory muscle use. Clear to auscultation. Breath sounds equal bilaterally. GASTROINTESTINAL: Abdomen soft, non-tender, nondistended. MUSCULOSKELETAL: Extremities without clubbing, cyanosis, or edema. No obvious deformities. NEUROLOGICAL: Awake and alert. No obvious cranial nerve deficits. Moving all extremities. PSYCHIATRIC: Appropriate mood and affect; insight and judgment normal. Data Data Last Documented VS Vital Signs Date Time Temp Pulse Resp B/P (MAP) Pulse Ox O2 Delivery O2 Flow Rate FiO2 07/02/17 10:55 84 17 /86 98 Room Air 07/02/17 09:06 97.5 Orders Orders Electrocardiogram (07/02/17 09:19) Complete Blood Count With Diff (07/02/17 09:19) Comprehensive Metabolic Panel (07/02/17 09:19) Ecg Monitoring (07/02/17 09:19) Bilateral Bp Monitoring (07/02/17 09:19) Iv Access Insert/Monitor (07/02/17 09:19) Oximetry (07/02/17 09:19) Oxygen Administration (07/02/17 09:19) Sodium Chloride 0.9% Flush (Ns Flush) (07/02/17 09:30) Ct Brain W/O Iv Contrast(Rout) (07/02/17 ) Prochlorperazine Inj (Compazine Inj) (07/02/17 09:30) Diphenhydramine Inj (Benadryl Inj) (07/02/17 09:30) Sodium Chlorid 0.9% 500 Ml Inj (Ns 500 M (07/02/17 09:30) Labetalol Inj (Trandate Inj) (07/02/17 11:15) Carvedilol (Coreg) (07/02/17 11:15) Sodium Chlorid 0.9% 500 Ml Inj (Ns 500 M (07/02/17 11:15) Lisinopril (Prinivil) (07/02/17 11:15) Labs Laboratory Tests Test 07/02/17 09:30 White Blood Count 8.0 TH/MM3 Red Blood Count 5.80 MIL/MM3 Hemoglobin 16.0 GM/DL Hematocrit 47.8 % Mean Corpuscular Volume 82.5 FL Mean Corpuscular Hemoglobin 27.7 PG Mean Corpuscular Hemoglobin Concent 33.5 % Red Cell Distribution Width 16.2 % Platelet Count 228 TH/MM3 Mean Platelet Volume 9.0 FL Neutrophils (%) (Auto) 74.8 % Lymphocytes (%) (Auto) 16.3 % Monocytes (%) (Auto) 6.0 % Eosinophils (%) (Auto) 1.7 % Basophils (%) (Auto) 1.2 % Neutrophils # (Auto) 6.0 TH/MM3 Lymphocytes # (Auto) 1.3 TH/MM3 Monocytes # (Auto) 0.5 TH/MM3 Eosinophils # (Auto) 0.1 TH/MM3 Basophils # (Auto) 0.1 TH/MM3 CBC Comment DIFF FINAL Differential Comment Blood Urea Nitrogen 10 MG/DL Creatinine 1.21 MG/DL Random Glucose 135 MG/DL Total Protein 8.4 GM/DL Albumin 4.6 GM/DL Calcium Level 9.7 MG/DL Alkaline Phosphatase 74 U/L Aspartate Amino Transf (AST/SGOT) 21 U/L Alanine Aminotransferase (ALT/SGPT) 23 U/L Total Bilirubin 0.9 MG/DL Sodium Level 136 MEQ/L Potassium Level 4.1 MEQ/L Chloride Level 101 MEQ/L Carbon Dioxide Level 23.2 MEQ/L Anion Gap 12 MEQ/L Estimat Glomerular Filtration Rate 46 ML/MIN MDM Medical Decision Making Medical Screen Exam Complete: Yes Emergency Medical Condition: Yes Interpretation(s) Afebrile, mild tachycardia, hypertensive Hemoconcentration Mild renal insufficiency Last [address] 07/02/17 0000 Signed Impressions: Service Date/Time: Sunday, July 02, 2017 09:57 - CONCLUSION: No acute disease. Diego Montoya MD Differential Diagnosis Migraine headache, hemorrhage, dehydration, viral syndrome Narrative Course This is a 57-year-old female who presents to the emergency department with headache, vomiting and diarrhea that has been going on for several days. I suspect the patient's has a viral syndrome based on her description of symptoms. Labs were obtained which demonstrates mild renal insufficiency. She was given 2 500 cc boluses. She was also given her home blood pressure medication. She was given Compazine and Benadryl for her headache. CT of the head is reassuring. Patient feels much better on reassessment. I think she can be discharged home. Diagnosis Primary Impression: Dehydration Additional Impression: Viral syndrome Patient Instructions: General Instructions Additional Instructions: If you develop severe worsening headache, persistent vomiting, numbness, weakness, difficulty walking or difficulty talking return to the emergency department immediately. Sometimes in the emergency department we did not identify the cause of headaches. If you continued to have headaches it is very important that you followup with your primary care physician as you may need further testing with an MRI. Med/Other Pt SpecificInfo: No Change to Meds Disposition: 01 DISCHARGE HOME Condition: Stable Alessandra Cotton MD July 02, 2017 09:38
[2017-07-02 09:43] LABS: BASOPHIL # 0.1 TH/MM3 (0-0.2); BASOPHIL % 1.2 % (0.0-2.0); EOSINOPHIL # 0.1 TH/MM3 (0-0.4); EOSINOPHIL % 1.7 % (0.0-4.0); HEMATOCRIT 47.8 % (35.0-46.0); LYMPH % 16.3 % (9.0-44.0); LYMPHOCYTE # 1.3 TH/MM3 (1.0-4.8); MEAN CELL VOLUME 82.5 FL (80.0-100.0); MEAN CORPUSCULAR HEMOGLOBIN 27.7 PG (27.0-34.0); MEAN CORPUSCULAR HGB CONC 33.5 % (32.0-36.0); MONOCYTE # 0.5 TH/MM3 (0-0.9); NEUT % 74.8 % (16.0-70.0); PLATELET COUNT 228 TH/MM3 (150-450); RED CELL DISTRIBUTION WIDTH 16.2 % (11.6-17.2)
[2017-07-02 09:58] LABS: ALBUMIN 4.6 GM/DL (3.4-5.0); ALT (GPT) 23 U/L (10-53); AST (GOT) 21 U/L (15-37); BICARBONATE 23.2 MEQ/L (21.0-32.0); BLOOD UREA NITROGEN 10 MG/DL (7-18); CALCIUM 9.7 MG/DL (8.5-10.1); CHLORIDE 101 MEQ/L (98-107); CREATININE 1.21 MG/DL (0.50-1.00); GLOMERULAR FILTRATION RATE 46 ML/MIN (>89); GLUCOSE,RANDOM 135 MG/DL (74-106); SODIUM (NA) 136 MEQ/L (136-145)
[2017-07-02 10:01] VITALS: BP 187/106; PULSE 93; RESP 18; O2SAT 96
[2017-07-02 10:01] LABS: ALKALINE PHOSPHATASE 74 U/L (45-117); TOTAL BILIRUBIN ADULT 0.9 MG/DL (0.2-1.0); TOTAL PROTEIN 8.4 GM/DL (6.4-8.2)
--- NOTE | 2017-07-02 10:15 | RADRPT ---
EXAM DATE/TIME: 07/02/2017 09:57 [facility] COMPARISON: CT BRAIN W/O CONTRAST, September 29, 2014, 22:14. INDICATIONS : Cephalgia for two days. RADIATION DOSE: 34.83 CTDIvol (mGy) MEDICAL HISTORY : Stroke. diabetes SURGICAL HISTORY : None. ENCOUNTER: Initial ACUITY: 2 days PAIN SCALE: 7/10 LOCATION: Bilateral head TECHNIQUE: Multiple contiguous axial images were obtained of the head. Using automated exposure control and adj ustment of the mA and/or kV according to patient size, radiation dose was kept as low as reasonably a chievable to obtain optimal diagnostic quality images. DICOM format image data is available electro nically for review and comparison. FINDINGS: CEREBRUM: The ventricles are normal for age. No evidence of midline shift, mass lesion, hemorrhage or acute in farction. No extra-axial fluid collections are seen. POSTERIOR FOSSA: The cerebellum and brainstem are intact. The 4th ventricle is midline. The cerebellopontine angle i s unremarkable. EXTRACRANIAL: The visualized portion of the orbits is intact. SKULL: The calvaria is intact. No evidence of skull fracture. CONCLUSION: No acute disease. Diego Montoya MD on July 02, 2017 at 10:10 Board Certified Radiologist. This report was verified electronically.
[2017-07-02 10:55] VITALS: BP_DIAS 86; PULSE 84; RESP 17; O2SAT 98
[2017-07-02] MEDS ORDERED: CARVEDILOL 6.25 MG TAB PO ONE (11:15)
[2017-07-02] MEDS ORDERED: LISINOPRIL 10 MG TAB PO ONE (11:15)
[2017-07-02] MEDS ORDERED: LABETALOL HCL 100 MG/20 ML VIAL IV PUSH ONE (11:15)
[2017-07-02 12:19] VITALS: BP 172/79
--- NOTE | 2017-07-04 10:45 | EKG ---
Date Performed: 07/02/2017 Time Performed: 09:20:32 PTAGE: 57 years EKG: SINUS TACHYCARDIA POSSIBLE LEFT VENTRICULAR HYPERTROPHY POSSIBLE ANTERIOR MYOCARDIAL INFARC TION INFERIOR MYOCARDIAL INFARCTION ABNORMAL ECG NO PREVIOUS TRACING DOCTOR: Brandon De Souza Interpretating Date/Time 07/04/2017 10:45:09
== END 2017-07-02 12:21 | disposition home or self-care (01) ==
LOC: NEPE 09:05
DX: E86.0 Dehydration (principal); B34.9 Viral infection, unspecified; R94.31 Abnormal electrocardiogram [ECG] [EKG]; R11.2 Nausea with vomiting, unspecified; I48.91 Unspecified atrial fibrillation; E78.00 Pure hypercholesterolemia, unspecified; I50.9 Heart failure, unspecified; I11.0 Hypertensive heart disease with heart failure; E11.9 Type 2 diabetes mellitus without complications; I25.2 Old myocardial infarction; F12.90 Cannabis use, unspecified, uncomplicated
CPT/HCPCS: 70450; 80053; 85025; 93005; 96361; 96374; 96375; 99285; J0780; J1200; J7040